=== PATIENT | male | born 1945 | race Caucasian/White ===

== ENCOUNTER 2018-06-12 06:10 | Day surgery (SDC) | payer MEDICARE, BC ==
[2018-06-05 11:10] VITALS: BMI 28.3
[2018-06-12] MEDS ORDERED: SODIUM CHLORIDE 0.9% 1,000 ML IV SCH ×2 (06:14→08:00)
[2018-06-12 06:34] VITALS: RESP 16; TEMP 97
[2018-06-12] MEDS ORDERED: SODIUM CHLORIDE 0.9% 1,000 ML IV ONE ×2 (06:34→08:15)
[2018-06-12] MEDS ORDERED: SODIUM CHLORIDE 0.9% 500 ML 500 ML IV ONE (07:15)
[2018-06-12] MEDS ORDERED: PHENYLEPHRINE-0.9% NACL SYG 1 MG/10 ML SYRINGE ONE ×2 (07:27→07:36)
[2018-06-12] MEDS ORDERED: PROPOFOL 10 MG/ML 20 ML VIAL IV ONE ×2 (07:27→07:36)
[2018-06-12] MEDS ORDERED: ePHEDrine SULFATE/0.9% NACL/PF 50 MG/5 ML SYRINGE IV ONE ×2 (07:27→07:36)
[2018-06-12] MEDS ORDERED: GLYCOPYRROLATE 0.2 MG/ML 2 ML VIAL ONE (07:27)
[2018-06-12] MEDS ORDERED: LIDOCAINE 1% INJ 10MG/ML (20 ML MDV) ONE (07:36)
[2018-06-12] MEDS ORDERED: MIDAZOLAM 2 MG/2 ML VIAL ONE (07:36)
[2018-06-12] MEDS ORDERED: fentaNYL (PF) 50 MCG/ML 2 ML AMP ONE (07:36)
[2018-06-12] MEDS ORDERED: SUCCINYLCHOLINE CHLORIDE VIAL 200 MG/10 ML VIAL IV ONE (07:36)
[2018-06-12 07:45] LABS: Calcium 9.3 mg/dL (8.4-10.2)
[2018-06-12 07:50] LABS: Potassium 5.4 mmol/L (3.5-5.1)
[2018-06-12] MEDS ORDERED: NITROGLYCERIN SL TABS 0.4 MG TAB SUBLINGUAL PRN (07:52)
[2018-06-12] MEDS ORDERED: HYDROcodone/APAP 10-325MG 1 EACH TAB PO PRN (07:52)
--- NOTE | 2018-06-12 08:14 | ECHOT ---
TRANSESOPHAGEAL ECHOCARDIOGRAM INDICATION: Evaluation of left atrial appendage. PROCEDURE: After explaining the procedure to the patient, its risks and the complications, his blood pressure, heart rate, O2 saturation was monitored. The throat was sprayed with Cetacaine. He received sedation per anesthesia department. The probe was introduced in the esophagus without difficulty. Images were obtained. Following that, the probe was removed. FINDINGS: Left atrial size is dilated. Spontaneous contrast was noted. Left atrial appendage is normal. Left ventricular size is normal. The anterior and anteroseptal wall are hypokinetic. Estimated ejection fraction of 40%. The aortic valve revealed fibrocalcific change of aortic cusp with reduced opening. Mitral valve revealed mitral annulus calcification. Tricuspid valve is normal. Descending thoracic aorta appears to be normal. Contrast bubble study revealed no shunting across the interatrial septum. There was no pericardial effusion. Doppler, pulse wave and color Doppler obtained revealed mild mitral and aortic and tricuspid regurgitation. There was no shunting by color Doppler study. The peak gradient across the aortic valve was 20 mmHg with a mean of 10 mmHg. CONCLUSION: 1. Dilated left atrium with normal appearance left atrial appendage with spontaneous contrast. 2. Normal left ventricular size with moderately impaired left ventricular systolic function with segmental wall motion abnormality. 3. Tricuspid aortic valve with mild to moderate aortic stenosis and mild aortic regurgitation. 4. Mild mitral regurgitation with mitral annulus calcification. 5. Mild tricuspid regurgitation. 6. No evidence of shunting across the interatrial septum. MMODL / IJN: [id number] / MTDD
--- NOTE | 2018-06-12 08:17 | CE ---
CARDIAC ELECTROPHYSIOLOGY REPORT CARDIOVERSION PROCEDURE NOTE: INDICATION: Atrial fibrillation. PROCEDURE: After explaining the procedure to the patient, its risks and complications, blood pressure. Heart rate, O2 saturation were monitored. After obtaining sedated state and performing transesophageal echocardiogram, a synchronized biphasic cardioversion using 200 joules was performed with [facility] of normal sinus rhythm. The patient has a long rewarming pause following cardioversion. SAE / JADONN: [id number] /
[2018-06-12] MEDS ORDERED: TICAGRELOR 90 MG TAB PO SCH (09:00)
[2018-06-12] MEDS ORDERED: TAMSULOSIN 0.4 MG CAP.ER.24H PO SCH (09:00)
[2018-06-12] MEDS ORDERED: ATENOLOL 25 MG TAB PO SCH (09:00)
[2018-06-12] MEDS ORDERED: APIXABAN 5 MG TAB PO SCH (09:00)
[2018-06-12 11:09] VITALS: PULSE 56
[2018-06-12 11:11] VITALS: BP 92/53
[2018-06-12] MEDS ORDERED: NON-FORMULARY DRUG (Aspirin [Adult Low Dose Aspirin Ec] 81 MG) PO SCH (21:00)
[2018-06-12] MEDS ORDERED: NON-FORMULARY DRUG (Rosuvastatin 10 MG) PO SCH (21:00)
== END 2018-06-12 11:06 | disposition home or self-care (01) ==
LOC: CATHCVL 06:10
PROVIDERS: ATTEND Internal Medicine Interventional Cardiology
DX: I48.1 Persistent atrial fibrillation (principal); I08.3 Combined rheumatic disorders of mitral, aortic and tricuspid valves; I25.10 Atherosclerotic heart disease of native coronary artery without angina pectoris; I10 Essential (primary) hypertension; Z95.5 Presence of coronary angioplasty implant and graft; E78.2 Mixed hyperlipidemia; Z79.02 Long term (current) use of antithrombotics/antiplatelets; Z79.82 Long term (current) use of aspirin; Z79.899 Other long term (current) drug therapy; Z88.6 Allergy status to analgesic agent; Z91.09 Other allergy status, other than to drugs and biological substances
CPT/HCPCS: 93312; 93320; 93325; 92960; 80048; J2250; J0330; J2001; J3010; J2370; J2704

== ENCOUNTER 2018-06-28 12:46 | Inpatient (IN) | payer MEDICARE, BC ==
[2018-06-28] MEDS ORDERED: ASPIRIN 81 MG PO STA (13:01)
[2018-06-28] MEDS ORDERED: HYDROcodone/APAP 10-325MG 1 EACH TAB PO ONE (13:46)
[2018-06-28 13:54] LABS: Basophils # (A) 0.1 k/uL (0-0.2); Basophils % (A) 1 %; Eosinophils # (A) 0.4 k/uL (0-0.7); Eosinophils % (A) 3 %; HCT 41.4 % (39.0-53.0); HGB 12.9 gm/dL (13.0-17.5); Hypochromasia Slight; Lymphocytes % (A) 9 %; MCH 30.7 pg (25.0-35.0); MCHC 31.2 g/dL (31.0-37.0); MCV 98.3 fL (80.0-100.0); Mean Platelet Volume 6.8; Monocytes # (A) 0.7 k/uL (0-1.0); Monocytes % (A) 7 %; Neutrophils # (A) 8.5 k/uL (1.3-7.7); Neutrophils % (A) 78 %; Platelet Count 421 k/uL (150-450); RBC 4.21 m/uL (4.30-5.90); RDW 14.4 % (11.5-15.5); WBC 10.8 k/uL (3.8-10.6)
--- NOTE | 2018-06-28 14:01 | XR ---
EXAMINATION TYPE: XR chest 2V DATE OF EXAM: 06/28/2018 COMPARISON: NONE HISTORY: Shortness of breath TECHNIQUE: Frontal and lateral views of the chest are obtained. FINDINGS: Scattered senescent parenchymal changes noted. Hyperinflation compatible with COPD. No evidence for infiltrate. No evidence for atelectasis. Heart size is stable. Mediastinal structures are stable and grossly unremarkable. No evidence for hilar prominence. Degenerative changes dorsal spine. IMPRESSION: 1. No evidence for acute pulmonary disease.
[2018-06-28 14:07] LABS: Albumin 4.3 g/dL (3.5-5.0); Calcium 9.9 mg/dL (8.4-10.2); Magnesium 2.2 mg/dL (1.6-2.3); Total Bilirubin 1.5 mg/dL (0.2-1.3); Total Protein 7.6 g/dL (6.3-8.2)
[2018-06-28] MEDS ORDERED: SODIUM CHLORIDE 0.9% 1,000 ML IV STA (14:08)
[2018-06-28] MEDS ORDERED: DILTIAZEM 50 MG in SODIUM CHLORIDE 0.9% 40 ML IV SCH (14:15)
[2018-06-28 14:22] LABS: INR 1.4 (<1.2); Partial Thromboplastin Time 27.8 sec (22.0-30.0); Prothrombin Time 13.3 sec (9.0-12.0)
[2018-06-28] MEDS ORDERED: ESMOLOL IN SODIUM CHLORIDE PMX 2.5 GM in SALINE 1 250ML.BAG IV ONE (15:45)
--- NOTE | 2018-06-28 15:52 | ED ---
Arrhythmia/Palpitations HPI - General Chief Complaint: Arrhythmia/Palpitations Stated Complaint: AFIB Time Seen by Provider: 06/28/18 12:58 Source: patient Mode of arrival: ambulatory Limitations: no limitations - History of Present Illness Initial Comments: Patient presents to the emergency department with palpitations. He was at his doctor's office today. They found him to be an atrial fibrillation with rapid ventricular response. He has a history of atrial fibrillation in the past. He takes liquids. He denies any chest pain or pressure. He has no lightheadedness or dizziness or diaphoresis. He has no focal weakness. He has no nausea or vomiting - Related Data Home Medications Medication Instructions Recorded Confirmed Atenolol [Tenormin] 25 mg PO TID 03/02/16 06/28/18 Tamsulosin [Flomax] 0.4 mg PO QAM 03/02/16 06/28/18 Apixaban [Eliquis] 5 mg PO BID 06/05/18 06/28/18 Nitroglycerin Sl Tabs [Nitrostat] 0.4 mg SUBLINGUAL Q5M PRN 06/05/18 06/28/18 Rosuvastatin [Crestor] 10 mg PO HS 06/05/18 06/28/18 Ticagrelor [Brilinta] 90 mg PO BID 06/05/18 06/28/18 Ciprofloxacin HCl [Cipro] 500 mg PO BID 06/28/18 06/28/18 Lisinopril [Prinivil] 5 mg PO DAILY 06/28/18 06/28/18 Allergies Allergy/AdvReac Type Severity Reaction Status Date / Time No Known Allergies Allergy Verified 06/28/18 14:30 Review of Systems ROS Statement: Those systems with pertinent positive or pertinent negative responses have been documented in the HPI. ROS Other: All systems not noted in ROS Statement are negative. Past Medical History Past Medical History: Atrial Fibrillation, Asthma, Hyperlipidemia, Hypertension , Osteoarthritis (OA), Prostate Disorder Additional Past Medical History / Comment(s): BLOOD IN STOOL past, blood in urine History of Any Multi-Drug Resistant Organisms: None Reported Past Surgical History: No Surgical Hx Reported, Heart Catheterization With Stent Additional Past Surgical History / Comment(s): 05/13 4 stents placed in [place] Past Anesthesia/Blood Transfusion Reactions: No Reported Reaction Date of Last Stent Placement:: 05/13 Past Psychological History: No Psychological Hx Reported Smoking Status: Former smoker Past Alcohol Use History: None Reported Past Drug Use History: None Reported - Past Family History Mother Family Medical History: Cancer Additional Family Medical History / Comment(s): COLON General Exam Limitations: no limitations General appearance: alert, in no apparent distress Head exam: Present: atraumatic, normocephalic, normal inspection Eye exam: Present: normal appearance, PERRL, EOMI. Absent: scleral icterus, conjunctival injection, periorbital swelling ENT exam: Present: normal exam, mucous membranes moist Neck exam: Present: normal inspection. Absent: tenderness, meningismus, lymphadenopathy Respiratory exam: Present: normal lung sounds bilaterally. Absent: respiratory distress, wheezes, rales, rhonchi, stridor Cardiovascular Exam: Present: tachycardia, irregular rhythm. Absent: systolic murmur, diastolic murmur, rubs, gallop, clicks GI/Abdominal exam: Present: soft, normal bowel sounds. Absent: distended, tenderness, guarding, rebound, rigid Extremities exam: Present: normal inspection, full ROM, normal capillary refill. Absent: tenderness, pedal edema, joint swelling, calf tenderness Back exam: Present: normal inspection Neurological exam: Present: alert, oriented X3, CN II-XII intact Psychiatric exam: Present: normal affect, normal mood Skin exam: Present: warm, dry, intact, normal color. Absent: rash Course Vital Signs 06/28/18 06/28/18 06/28/18 12:48 13:29 14:10 Temperature 96.8 F L Pulse Rate 80 151 H Pulse Rate [ 151 H Supine Community Health Worker] Respiratory 20 Rate Blood Pressure 88/66 91/79 O2 Sat by Pulse 96 98 Oximetry 06/28/18 06/28/18 06/28/18 14:22 14:35 14:54 Temperature Pulse Rate 149 H 147 H 150 H Pulse Rate [ Supine Community Health Worker] Respiratory 18 18 Rate Blood Pressure 93/77 102/70 96/80 O2 Sat by Pulse 100 100 Oximetry 06/28/18 06/28/18 06/28/18 15:00 15:37 15:43 Temperature Pulse Rate 147 H 77 75 Pulse Rate [ Supine Community Health Worker] Respiratory 16 18 16 Rate Blood Pressure 92/73 99/79 97/76 O2 Sat by Pulse 98 100 98 Oximetry EKG Findings - EKG Comments: EKG Findings:: Twelve-lead EKG interpreted by me showing ventricular rate 149 bpm, there are no P waves present, the QRS, axis are normal, there is no ST elevation or depression, this is interpreted by me as atrial fibrillation with rapid ventricular response. Medical Decision Making - Medical Decision Making Patient presents with atrial fibrillation with rapid ventricular response. I ordered an IV Cardizem drip. I controlled his heart rate. Patient will be admitted to the hospital. - Lab Data Result diagrams: 06/28/18 13:17 06/28/18 13:17 Lab Results 06/28/18 06/28/18 06/28/18 Range/Units 13:17 13:17 13:17 WBC 10.8 H (3.8-10.6) k/uL RBC 4.21 L (4.30-5.90) m/uL Hgb 12.9 L (13.0-17.5) gm/dL Hct 41.4 (39.0-53.0) % MCV 98.3 (80.0-100.0) fL MCH 30.7 (25.0-35.0) pg MCHC 31.2 (31.0-37.0) g/dL RDW 14.4 (11.5-15.5) % Plt Count 421 (150-450) k/uL Neutrophils % 78 % Lymphocytes % 9 % Monocytes % 7 % Eosinophils % 3 % Basophils % 1 % Neutrophils # 8.5 H (1.3-7.7) k/uL Lymphocytes # 1.0 (1.0-4.8) k/uL Monocytes # 0.7 (0-1.0) k/uL Eosinophils # 0.4 (0-0.7) k/uL Basophils # 0.1 (0-0.2) k/uL Hypochromasia Slight PT 13.3 H (9.0-12.0) sec INR 1.4 H (<1.2) APTT 27.8 (22.0-30.0) sec Sodium 134 L (137-145) mmol/L Potassium 5.0 (3.5-5.1) mmol/L Chloride 103 (98-107) mmol/L Carbon Dioxide 16 L (22-30) mmol/L Anion Gap 15 mmol/L BUN 35 H (9-20) mg/dL Creatinine 1.56 H (0.66-1.25) mg/dL Est GFR (CKD-EPI)AfAm 51 (>60 ml/min/1.73 sqM) Est GFR (CKD-EPI)NonAf 44 (>60 ml/min/1.73 sqM) Glucose 107 H (74-99) mg/dL Calcium 9.9 (8.4-10.2) mg/dL Magnesium 2.2 (1.6-2.3) mg/dL Total Bilirubin 1.5 H (0.2-1.3) mg/dL AST 21 (17-59) U/L ALT 27 (21-72) U/L Alkaline Phosphatase 67 (38-126) U/L Troponin I (0.000-0.034) ng/mL Total Protein 7.6 (6.3-8.2) g/dL Albumin 4.3 (3.5-5.0) g/dL 06/28/18 Range/Units 13:17 WBC (3.8-10.6) k/uL RBC (4.30-5.90) m/uL Hgb (13.0-17.5) gm/dL Hct (39.0-53.0) % MCV (80.0-100.0) fL MCH (25.0-35.0) pg MCHC (31.0-37.0) g/dL RDW (11.5-15.5) % Plt Count (150-450) k/uL Neutrophils % % Lymphocytes % % Monocytes % % Eosinophils % % Basophils % % Neutrophils # (1.3-7.7) k/uL Lymphocytes # (1.0-4.8) k/uL Monocytes # (0-1.0) k/uL Eosinophils # (0-0.7) k/uL Basophils # (0-0.2) k/uL Hypochromasia PT (9.0-12.0) sec INR (<1.2) APTT (22.0-30.0) sec Sodium (137-145) mmol/L Potassium (3.5-5.1) mmol/L Chloride (98-107) mmol/L Carbon Dioxide (22-30) mmol/L Anion Gap mmol/L BUN (9-20) mg/dL Creatinine (0.66-1.25) mg/dL Est GFR (CKD-EPI)AfAm (>60 ml/min/1.73 sqM) Est GFR (CKD-EPI)NonAf (>60 ml/min/1.73 sqM) Glucose (74-99) mg/dL Calcium (8.4-10.2) mg/dL Magnesium (1.6-2.3) mg/dL Total Bilirubin (0.2-1.3) mg/dL AST (17-59) U/L ALT (21-72) U/L Alkaline Phosphatase (38-126) U/L Troponin I 0.049 H* (0.000-0.034) ng/mL Total Protein (6.3-8.2) g/dL Albumin (3.5-5.0) g/dL Critical Care Time Critical Care Time: Yes Total Critical Care Time: 35 Disposition Clinical Impression: Atrial fibrillation Disposition: ADMITTED IP TO THIS [facility] Condition: Serious Is patient prescribed a controlled substance at d/c from ED?: No Referrals: Alecia Rai MD [Primary Care Provider] - 1-2 days Decision to Admit Reason: Admit from EC Decision Time: 15:52
[2018-06-28] MEDS ORDERED: NALOXONE 0.4 MG/ML 1 ML VIAL IV PRN (15:55)
[2018-06-28] MEDS ORDERED: METOPROLOL TARTRATE 50 MG TAB PO SCH (16:53)
--- NOTE | 2018-06-28 17:02 | P.HPIM ---
History of Present Illness 72-year-old pleasant gentleman came in as he was sent in from Dr. Reed, compliance reviewer office after he is found to be in atrial fibrillation he went there for stress test patient is found to be in A. fib with rapid ventricular rate. Patient is also being treated for urinary tract infection, was evaluated by urology patient had a dysuria hematuria and patient was started on Cipro recently which will be continued patient has Proteus mirabilis in the urine cultures which is sensitive to fluoroquinolones. Patient presently denied any fever chills doesn't have any leukocytosis patient's creatinine is 1.56 patient in the past had a cardioversion with the CANDIDA at that time he has moderately depressed LV function although patient is not in heart failure exacerbation. His baseline creatinine is around 1.6. Patient is on lisinopril which is being continued because of the heart failure and creatinine being at baseline although his serum sodium is 134, for now will just monitor basic metabolic profile repeated tomorrow morning. Patient is presently on Cardizem which will be discontinued patient is given a dose of metoprolol 50 and will continue with 50 twice a day and cardiology was consulted patient has mildly elevated troponin probably secondary to atrial fibrillation we'll repeat 2 more sets of troponins on him. Patient the was having some shortness of breath denied any diaphoresis denied orthopnea proximal nocturnal dyspnea, I do not have any BNP available BNP, TSH will be obtained. Review of Systems REVIEW OF SYSTEMS: CONSTITUTIONAL: No fever, no malaise, no fatigue. HEENT: No recent visual problems or hearing problems. Denied any sore throat. CARDIOVASCULAR: No chest pain, orthopnea, PND, no palpitations, no syncope. PULMONARY: no cough, no hemoptysis. GASTROINTESTINAL: No diarrhea, no nausea, no vomiting, no abdominal pain. Normoactive bowel sounds. NEUROLOGICAL: No headaches, no weakness, no numbness. HEMATOLOGICAL: Denies any bleeding or petechiae. GENITOURINARY: Denies any burning micturition, frequency, or urgency. MUSCULOSKELETAL/RHEUMATOLOGICAL: Denies any joint pain, swelling, or any muscle pain. ENDOCRINE: Denies any polyuria or polydipsia. The rest of the 14-point review of systems is negative. Past Medical History Past Medical History: Atrial Fibrillation, Asthma, Hyperlipidemia, Hypertension , Osteoarthritis (OA), Prostate Disorder Additional Past Medical History / Comment(s): BLOOD IN STOOL past, blood in urine History of Any Multi-Drug Resistant Organisms: None Reported Past Surgical History: No Surgical Hx Reported, Heart Catheterization With Stent Additional Past Surgical History / Comment(s): 05/13 4 stents placed in [place] Past Anesthesia/Blood Transfusion Reactions: No Reported Reaction Date of Last Stent Placement:: 05/13 Past Psychological History: No Psychological Hx Reported Smoking Status: Former smoker Past Alcohol Use History: None Reported Past Drug Use History: None Reported - Past Family History Mother Family Medical History: Cancer Additional Family Medical History / Comment(s): COLON Medications and Allergies Home Medications Medication Instructions Recorded Confirmed Type Atenolol [Tenormin] 25 mg PO TID 03/02/16 06/28/18 History Tamsulosin [Flomax] 0.4 mg PO QAM 03/02/16 06/28/18 History Apixaban [Eliquis] 5 mg PO BID 06/05/18 06/28/18 History Nitroglycerin Sl Tabs [Nitrostat] 0.4 mg SUBLINGUAL Q5M PRN 06/05/18 06/28/18 History Rosuvastatin [Crestor] 10 mg PO HS 06/05/18 06/28/18 History Ticagrelor [Brilinta] 90 mg PO BID 06/05/18 06/28/18 History Ciprofloxacin HCl [Cipro] 500 mg PO BID 06/28/18 06/28/18 History Lisinopril [Prinivil] 5 mg PO DAILY 06/28/18 06/28/18 History Allergies Allergy/AdvReac Type Severity Reaction Status Date / Time No Known Allergies Allergy Verified 06/28/18 14:30 Physical Exam Vitals: Vital Signs Temp Pulse Pulse Resp BP Pulse Ox 06/28/18 16:00 80 16 108/77 100 06/28/18 15:43 75 16 97/76 98 06/28/18 15:37 77 18 99/79 100 06/28/18 15:00 147 H 16 92/73 98 06/28/18 14:54 150 H 18 96/80 100 06/28/18 14:35 147 H 102/70 06/28/18 14:22 149 H 18 93/77 100 06/28/18 14:10 151 H 91/79 98 06/28/18 13:29 151 H 06/28/18 12:48 96.8 F L 80 20 88/66 96 Intake and Output 06/28/18 06/28/18 06/28/18 06:59 14:59 22:59 Intake Total 5 Balance 5 Intake: Intake, IV Titration 5 Amount Diltiazem 50 mg In Sodium 5 Chloride 0.9% 40 ml @ 10 MG/HR 10 mls/hr IV .Q5H [facility] Rx#:[id number] Other: Weight 94.347 kg PHYSICAL EXAMINATION: GENERAL: The patient is alert and oriented x3, not in any acute distress. Well developed, well nourished. HEENT: Pupils are round and equally reacting to light. EOMI. No scleral icterus. No conjunctival pallor. Normocephalic, atraumatic. No pharyngeal erythema. No thyromegaly. CARDIOVASCULAR: S1 and S2 present. No murmurs, rubs, or gallops. Patient has irregularly irregular heart rate PULMONARY: Chest is clear to auscultation, no wheezing or crackles. ABDOMEN: Soft, nontender, nondistended, normoactive bowel sounds. No palpable organomegaly. MUSCULOSKELETAL: No joint swelling or deformity. EXTREMITIES: No cyanosis, clubbing, or pedal edema. NEUROLOGICAL: Gross neurological examination did not reveal any focal deficits. SKIN: No rashes. Results CBC & Chem 7: 06/28/18 13:17 06/28/18 13:17 Labs: Abnormal Lab Results - Last 24 Hours (Table) 06/28/18 06/28/18 06/28/18 Range/Units 13:17 13:17 13:17 WBC 10.8 H (3.8-10.6) k/uL RBC 4.21 L (4.30-5.90) m/uL Hgb 12.9 L (13.0-17.5) gm/dL Neutrophils # 8.5 H (1.3-7.7) k/uL PT 13.3 H (9.0-12.0) sec INR 1.4 H (<1.2) Sodium 134 L (137-145) mmol/L Carbon Dioxide 16 L (22-30) mmol/L BUN 35 H (9-20) mg/dL Creatinine 1.56 H (0.66-1.25) mg/dL Glucose 107 H (74-99) mg/dL Total Bilirubin 1.5 H (0.2-1.3) mg/dL Troponin I (0.000-0.034) ng/mL 06/28/18 Range/Units 13:17 WBC (3.8-10.6) k/uL RBC (4.30-5.90) m/uL Hgb (13.0-17.5) gm/dL Neutrophils # (1.3-7.7) k/uL PT (9.0-12.0) sec INR (<1.2) Sodium (137-145) mmol/L Carbon Dioxide (22-30) mmol/L BUN (9-20) mg/dL Creatinine (0.66-1.25) mg/dL Glucose (74-99) mg/dL Total Bilirubin (0.2-1.3) mg/dL Troponin I 0.049 H* (0.000-0.034) ng/mL Assessment and Plan Plan: -Atrial fibrillation with rapid and regular rate patient is already on anticoagulation with Eliquis she'll be continued. Patient's shortness of breath is secondary to his A. fib most probably. Patient was on Cardizem because of poor LV function from his CANDIDA I Cardizem was discontinued patient will be given metoprolol 50 mg twice a day starting now. -Congestive heart failure chronic systolic dysfunction patient is either euvolemic or hypovolemic patient is not in volume overload patient will be resumed on JOHNNIE inhibitor lab start him on any diuretic therapy at this time. -Hyponatremia: Possibly hypervolemic hyponatremia considering his heart failure history patient will not be started on a IV fluids will repeat basic metabolic profile tomorrow -Urinary tract infection: Patient has Proteus mirabilis in the urine in the past patient will be started on Cipro patient is already on Cipro at home. -Benign prostatic hypertrophy for which patient is on Flomax which will be continued -Coronary artery disease with previous stents in the past for which patient is on [place] time which will be continued -Hyperlipidemia
[2018-06-28] MEDS: ATORVASTATIN 20 MG TAB PO SCH (19:54)
[2018-06-28] MEDS: TICAGRELOR 90 MG TAB PO SCH (19:54)
[2018-06-28] MEDS: APIXABAN 5 MG TAB PO SCH (19:54)
[2018-06-28] MEDS: CIPROFLOXACIN HCL 500 MG TAB PO SCH (19:54)
[2018-06-28] MEDS: METOPROLOL TARTRATE 50 MG TAB PO SCH (19:54)
[2018-06-28] MEDS: DILTIAZEM 50 MG in SODIUM CHLORIDE 0.9% 40 ML IV SCH ×2 (21:02→23:11)
[2018-06-28] MEDS ORDERED: ATENOLOL 25 MG TAB PO SCH (22:00)
[2018-06-28] MEDS: HYDROcodone/APAP 10-325MG 1 EACH TAB PO PRN (23:08)
[2018-06-29] MEDS: DILTIAZEM 50 MG in SODIUM CHLORIDE 0.9% 40 ML IV SCH ×2 (04:15→09:25)
--- NOTE | 2018-06-29 09:14 | P.DS ---
Providers Date of admission: 06/28/18 14:43 Attending physician: Zion Fan Consults: 06/29/18 08:38 Consult Physician Routine Consulting Provider: Chris Reed Consult Reason/Comments: A.fib Do you want consulting provider notified?: Yes Primary care physician: [facility] Course: 72-year-old pleasant gentleman with known history of atrial fibrillation came in with A. fib with rapid and rate. Patient had significant improvement since last night patient the is off Cardizem. Patient has moderately depressed LV function because of which I started him on metoprolol 50 twice a day with which his heart rate is well controlled but still in atrial fibrillation is on anticoagulation. If cleared by cardiology patient will be discharged to follow with Dr. Reed as an outpatient. Patient is feeling well not in heart failure exacerbation at this time. Patient does have elevated BNP which is probably chronic elevation. Chest x-ray did not show any pulmonary edema. PHYSICAL EXAMINATION: GENERAL: The patient is alert and oriented x3, not in any acute distress. Well developed, well nourished. HEENT: Pupils are round and equally reacting to light. EOMI. No scleral icterus. No conjunctival pallor. Normocephalic, atraumatic. No pharyngeal erythema. No thyromegaly. CARDIOVASCULAR: S1 and S2 present. No murmurs, rubs, or gallops. PULMONARY: Chest is clear to auscultation, no wheezing or crackles. ABDOMEN: Soft, nontender, nondistended, normoactive bowel sounds. No palpable organomegaly. MUSCULOSKELETAL: No joint swelling or deformity. EXTREMITIES: No cyanosis, clubbing, or pedal edema. NEUROLOGICAL: Gross neurological examination did not reveal any focal deficits. SKIN: No rashes. Assessment and Plan Plan: -Atrial fibrillation with rapid and regular rate patient is already on anticoagulation with Eliquis patient heart rate is controlled still in atrial flutter. Patient is on metoprolol 50 twice a day -Congestive heart failure chronic systolic dysfunction patient is either euvolemic or hypovolemic patient is not in volume overload patient will be resumed on JOHNNIE inhibitor lab start him on any diuretic therapy at this time. -Hyponatremia: Possibly hypervolemic hyponatremia considering his heart failure history patient was not be started on a IV fluids will repeat basic metabolic profile pending from today. -Urinary tract infection: Patient has Proteus mirabilis in the urine in the past patient will be started on Cipro patient is already on Cipro at home. Which can be continued symptoms are improving -Benign prostatic hypertrophy for which patient is on Flomax which will be continued -Coronary artery disease with previous stents in the past for which patient is on Brilinta which will be continued -Hyperlipidemia Patient Condition at Discharge: Serious Plan - Discharge Summary Discharge Rx Participant: No New Discharge Prescriptions: No Action Tamsulosin [Flomax] 0.4 mg PO QAM Atenolol [Tenormin] 25 mg PO TID Ticagrelor [Brilinta] 90 mg PO BID Nitroglycerin Sl Tabs [Nitrostat] 0.4 mg SUBLINGUAL Q5M PRN PRN Reason: Angina Rosuvastatin [Crestor] 10 mg PO HS Apixaban [Eliquis] 5 mg PO BID Ciprofloxacin HCl [Cipro] 500 mg PO BID Lisinopril [Prinivil] 5 mg PO DAILY HYDROcodone/APAP 10-325MG [[place] 10-325] 1 tablet PO Q8HR PRN PRN Reason: Pain Discharge Medication List Atenolol [Tenormin] 25 mg PO TID 03/02/16 [History] Tamsulosin [Flomax] 0.4 mg PO QAM 03/02/16 [History] Apixaban [Eliquis] 5 mg PO BID 06/05/18 [History] Nitroglycerin Sl Tabs [Nitrostat] 0.4 mg SUBLINGUAL Q5M PRN 06/05/18 [History] Rosuvastatin [Crestor] 10 mg PO HS 06/05/18 [History] Ticagrelor [Brilinta] 90 mg PO BID 06/05/18 [History] Ciprofloxacin HCl [Cipro] 500 mg PO BID 06/28/18 [History] HYDROcodone/APAP 10-325MG [[place] 10-325] 1 tablet PO Q8HR PRN 06/28/18 [History] Lisinopril [Prinivil] 5 mg PO DAILY 06/28/18 [History] Follow up Appointment(s)/Referral(s): Alecia Rai MD [Primary Care Provider] - 1-2 days
[2018-06-29] MEDS: CIPROFLOXACIN HCL 500 MG TAB PO SCH ×2 (09:26→20:11)
[2018-06-29] MEDS: APIXABAN 5 MG TAB PO SCH (09:26)
[2018-06-29] MEDS: METOPROLOL TARTRATE 50 MG TAB PO SCH ×2 (09:26→20:11)
[2018-06-29] MEDS: TICAGRELOR 90 MG TAB PO SCH (09:26)
[2018-06-29] MEDS: TAMSULOSIN 0.4 MG CAP.ER.24H PO SCH (09:26)
[2018-06-29] MEDS: HYDROcodone/APAP 10-325MG 1 EACH TAB PO PRN ×2 (09:32→20:11)
[2018-06-29 10:45] LABS: Calcium 9.5 mg/dL (8.4-10.2); Potassium 5.2 mmol/L (3.5-5.1)
[2018-06-29] MEDS ORDERED: DEXTROSE 5% IN WATER 100 ML with AMIODARONE 150 MG IV ONE (12:00)
[2018-06-29] MEDS: AMIODARONE 450 MG in DEXTROSE 5% IN WATER 250 ML IV SCH ×4 (12:26→20:12)
--- NOTE | 2018-06-29 12:58 | P.CRDCN ---
History of Present Illness Consult date: 06/29/18 Requesting physician: Vincent Mayen Reason for Consult (text): AF w/RVR Chief complaint: sent from office due to rapid heart beat and hypotension History of present illness: Supplies an 72-year-old gentleman with atrial fibrillation with rapid ventricular response. Has a history of CAD with recent cardiac catheterization and stenting done in [place] where he received 2 stents to LAD, one stent to left circumflex and one stent to the RCA. Ejection fraction at that time was reported to be 35-39%. No clear evidence of SD at that time. Also history of hypertension and hyperlipidemia. He was discharged home in [place] with aspirin , Eliquis and Brilinta. He recently underwent JENNIE and cardioversion at which time he had a long pause following the cardioversion. He was subsequently placed on an event monitor. He was seen in our office for a low-level stress test at which time he was found to be tachycardic and hypotensive. Was sent to the emergency department and found to be in atrial flutter with rapid ventricular response. He was placed on a Cardizem drip. Patient apparently has also been dealing with UTI and some hematuria. Laboratory values on admission showed a white count of 10,800, potassium of 5.0, BUN of 35 and creatinine of 1.56. Labs this morning show potassium 5.2, BUN of 28 and creatinine of 1.31. Troponins came back to mildly elevated at 0.049, 0.064 and 0.060. TSH is normal. Anti-proBNP is elevated at 2760. Patient has been complaining of some dyspnea on exertion. Has been noticing shortness of breath while walking through a store. On examination, patient is resting comfortably in bed. At rest heart rate is controlled. He continues to be a typical atrial flutter. Heart rate with activity is up in the 140s. Blood pressure remains borderline. He continues to be on Cardizem drip at 10 and metoprolol titrate 50 mg by mouth twice a day. Past Medical History Past Medical History: Atrial Fibrillation, Hyperlipidemia, Hypertension, Osteoarthritis (OA), Pneumonia, Prostate Disorder Additional Past Medical History / Comment(s): "blood in urine d/t uti", asthma previouslt charted-pt stated never told he had asthma, hx lt wrist fx -casted only, chronic back pain"spurs",currently wearing a heart monitiiro for 30 days. History of Any Multi-Drug Resistant Organisms: None Reported Past Surgical History: Heart Catheterization With Stent Additional Past Surgical History / Comment(s): 05/13 4 stents placed in [place], ep study jennie cardioversion.colonoscopy Past Anesthesia/Blood Transfusion Reactions: No Reported Reaction Date of Last Stent Placement:: 05/13 Smoking Status: Former smoker - Past Family History Mother Family Medical History: Cancer, Chest Pain / Angina, Hypertension, Thyroid Disorder Additional Family Medical History / Comment(s): COLON Father Family Medical History: Diabetes Mellitus, Hypertension Additional Family Medical History / Comment(s): ,pacemaker,brain anuerysm Medications and Allergies Home Medications Medication Instructions Recorded Confirmed Type Tamsulosin [Flomax] 0.4 mg PO QAM 03/02/16 06/28/18 History Apixaban [Eliquis] 5 mg PO BID 06/05/18 06/28/18 History Nitroglycerin Sl Tabs [Nitrostat] 0.4 mg SUBLINGUAL Q5M PRN 06/05/18 06/28/18 History Rosuvastatin [Crestor] 10 mg PO HS 06/05/18 06/28/18 History Ticagrelor [Brilinta] 90 mg PO BID 06/05/18 06/28/18 History Ciprofloxacin HCl [Cipro] 500 mg PO BID 06/28/18 06/28/18 History HYDROcodone/APAP 10-325MG [[place] 1 tablet PO Q8HR PRN 06/28/18 06/28/18 History 10-325] Lisinopril [Prinivil] 5 mg PO DAILY 06/28/18 06/28/18 History Metoprolol Tartrate [Lopressor] 50 mg PO BID #60 tab 06/29/18 Rx Allergies Allergy/AdvReac Type Severity Reaction Status Date / Time No Known Allergies Allergy Verified 06/28/18 14:30 Physical Exam Vitals: Vital Signs Temp Pulse Pulse Pulse Resp BP BP 06/29/18 12:00 76 77 06/29/18 11:52 97.4 F L 77 18 114/77 06/29/18 08:00 97.8 F 76 74 18 103/66 06/29/18 03:27 98.5 F 76 76 17 98/69 06/29/18 00:10 98.5 F 77 17 97/69 06/28/18 20:10 98.2 F 148 H 17 106/70 06/28/18 18:33 97.6 F 149 H 18 105/66 06/28/18 17:46 80 18 106/72 06/28/18 16:00 80 16 108/77 06/28/18 15:43 75 16 97/76 06/28/18 15:37 77 18 99/79 06/28/18 15:00 147 H 16 92/73 06/28/18 14:54 150 H 18 96/80 06/28/18 14:35 147 H 102/70 06/28/18 14:22 149 H 18 93/77 06/28/18 14:10 151 H 91/79 06/28/18 13:29 151 H 06/28/18 12:48 96.8 F L 80 20 88/66 Pulse Ox 06/29/18 12:00 06/29/18 11:52 99 06/29/18 08:00 98 06/29/18 03:27 98 06/29/18 00:10 100 06/28/18 20:10 100 06/28/18 18:33 94 L 06/28/18 17:46 100 06/28/18 16:00 100 06/28/18 15:43 98 06/28/18 15:37 100 06/28/18 15:00 98 06/28/18 14:54 100 06/28/18 14:35 06/28/18 14:22 100 06/28/18 14:10 98 06/28/18 13:29 06/28/18 12:48 96 Intake and Output 06/28/18 06/29/18 06/29/18 22:59 06:59 14:59 Intake Total 311.5 286 Balance 311.5 286 Intake: Intake, IV Titration 71.5 50 Amount Diltiazem 50 mg In Sodium 71.5 50 Chloride 0.9% 40 ml @ 10 MG/HR 10 mls/hr IV .Q5H [facility] Rx#:[id number] Oral 240 236 Other: Voiding Method Toilet Toilet Toilet # Voids 3 Weight 90.4 kg PHYSICAL EXAMINATION: HEENT: Head is atraumatic, normocephalic. Pupils equal, round. Neck is supple. There is no elevated jugular venous pressure. HEART EXAMINATION: Heart sounds regular, S1 and S2 with a systolic murmur. CHEST EXAMINATION: Lungs are clear to auscultation and precussion. No chest wall tenderness is noted on palpation or with deep breathing. ABDOMEN: Soft, nontender. Bowel sounds are heard. No organomegaly noted. EXTREMITIES: 2+ peripheral pulses with no evidence of peripheral edema and no calf tenderness noted. NEUROLOGIC patient is awake, alert and oriented x3. . Results 06/28/18 13:17 06/29/18 10:10 Cardiac Enzymes 06/28/18 06/28/18 06/28/18 Range/Units 13:17 13: 19:12 AST 21 (17-59) U/L Troponin I 0.049 H* 0.064 H* (0.000-0.034) ng/mL 06/29/18 Range/Units 00:47 AST (17-59) U/L Troponin I 0.060 H* (0.000-0.034) ng/mL Coagulation 06/28/18 Range/Units 13:17 PT 13.3 H (9.0-12.0) sec APTT 27.8 (22.0-30.0) sec CBC 06/28/18 Range/Units 13:17 WBC 10.8 H (3.8-10.6) k/uL RBC 4.21 L (4.30-5.90) m/uL Hgb 12.9 L (13.0-17.5) gm/dL Hct 41.4 (39.0-53.0) % Plt Count 421 (150-450) k/uL Comprehensive Metabolic Panel 06/28/18 06/29/18 Range/Units 13:17 10:10 Sodium 134 L 136 L (137-145) mmol/L Potassium 5.0 5.2 H (3.5-5.1) mmol/L Chloride 103 105 (98-107) mmol/L Carbon Dioxide 16 L 20 L (22-30) mmol/L BUN 35 H 28 H (9-20) mg/dL Creatinine 1.56 H 1.31 H (0.66-1.25) mg/dL Glucose 107 H 98 (74-99) mg/dL Calcium 9.9 9.5 (8.4-10.2) mg/dL AST 21 (17-59) U/L ALT 27 (21-72) U/L Alkaline Phosphatase 67 (38-126) U/L Total Protein 7.6 (6.3-8.2) g/dL Albumin 4.3 (3.5-5.0) g/dL Current Medications Generic Name Dose Route Start Last Admin Trade Name Freq PRN Reason Stop Dose Admin Hydrocodone Bitart/Acetaminophen 1 each 06/28/18 21:33 06/29/18 09:32 [place] 10 PO 1 each Q8HR PRN Administration Pain Atorvastatin Calcium 20 mg 06/28/18 21:00 06/28/18 19:54 Lipitor PO 20 mg HS HERLINDA Administration Ciprofloxacin 500 mg 06/28/18 21:00 06/29/18 09:26 Cipro PO 500 mg BID HERLINDA Administration Clopidogrel Bisulfate 300 mg 06/29/18 18:00 Plavix PO 06/29/18 18:01 ONCE ONE Clopidogrel Bisulfate 75 mg 06/30/18 09:00 Plavix PO DAILY HERLINDA Amiodarone HCl 450 mg/ 259 mls @ 34.53 mls/hr 06/29/18 12:15 06/29/18 12:26 Dextrose/Water IV 06/30/18 12:16 1 mg/min .Q7H31M HERLINDA 34.53 mls/hr Administration Protocol 1 MG/MIN Metoprolol Tartrate 50 mg 06/28/18 21:00 06/29/18 09:26 Lopressor PO 50 mg BID HERLINDA Administration Naloxone HCl 0.2 mg 06/28/18 15:55 Narcan IV Q2M PRN Opioid Reversal Rivaroxaban 15 mg 06/29/18 17:30 Xarelto PO W/SUPPER HERLINDA Tamsulosin HCl 0.4 mg 06/29/18 09:00 06/29/18 09:26 Flomax PO 0.4 mg QAM HERLINDA Administration Intake and Output 06/28/18 06/29/18 06/29/18 22:59 06:59 14:59 Intake Total 311.5 286 Balance 311.5 286 Intake: Intake, IV Titration 71.5 50 Amount Diltiazem 50 mg In Sodium 71.5 50 Chloride 0.9% 40 ml @ 10 MG/HR 10 mls/hr IV .Q5H HERLINDA Rx#:[id number] Oral 240 236 Other: Voiding Method Toilet Toilet Toilet # Voids 3 Weight 90.4 kg 06/28/18 13:17 06/29/18 10:10 Assessment and Plan Assessment: #1 typical atrial flutter with rapid ventricular response, persistent #2 CAD with recent stenting of the left circumflex, LAD and RCA #3 hypertension, currently hypotensive #4 cardiomyopathy, exact etiology unclear, could be partly ischemic as well as tachycardia mediated to my ejection fraction around 35-40% Plan: From cardiology perspective, we will stop Cardizem. We'll start the patient on amiodarone bolus and drip. We will stop Brilinta and Eliquis and switch to Xarelto 15mg daily and Plavix 75mg daily. He will get Plavix 300mg this evening. Continue to monitor the patient and provide further recommendations accordingly. EARLY CHILDHOOD COORDINATOR note has been reviewed, I agree with a documented findings and plan of care. Patient was seen and examined.
[2018-06-29] MEDS: RIVAROXABAN 15 MG TAB PO SCH (16:40)
[2018-06-29] MEDS ORDERED: DIGOXIN 250 MCG/ML 2 ML AMP IVP ONE (17:31)
[2018-06-29] MEDS ORDERED: CLOPIDOGREL 75 MG TAB PO ONE (18:00)
[2018-06-29] MEDS: ATORVASTATIN 20 MG TAB PO SCH (20:10)
[2018-06-30] MEDS: AMIODARONE 450 MG in DEXTROSE 5% IN WATER 250 ML IV SCH ×4 (06:15→10:58)
[2018-06-30] MEDS: TAMSULOSIN 0.4 MG CAP.ER.24H PO SCH (09:04)
[2018-06-30] MEDS: CIPROFLOXACIN HCL 500 MG TAB PO SCH ×2 (09:04→20:01)
[2018-06-30] MEDS: CLOPIDOGREL 75 MG TAB PO SCH (09:04)
[2018-06-30] MEDS: METOPROLOL TARTRATE 50 MG TAB PO SCH ×2 (09:04→20:01)
--- NOTE | 2018-06-30 11:39 | P.PN ---
Subjective 72-year-old pleasant gentleman with known history of atrial fibrillation came in with Dacia peacock with rapid and rate. Patient had significant improvement since last night patient the is off Cardizem. Patient has moderately depressed LV function because of which I started him on metoprolol 50 twice a day with which his heart rate is well controlled but still in atrial fibrillation is on anticoagulation. If cleared by cardiology patient will be discharged to follow with Dr. Reed as an outpatient. Patient is feeling well not in heart failure exacerbation at this time. Patient does have elevated BNP which is probably chronic elevation. Chest x-ray did not show any pulmonary edema. 06/30/2018 Patient clinically doing well but heart rate is in 130s 140s patient was started on amiodarone drip patient will need evaluation by electrophysiology tomorrow. Constitutional: Denied any fatigue denied any fever. Cardio vascular: denied any chest pain, palpitations Gastrointestinal denied any nausea vomiting Pulmonary: Denied any shortness of breath cough Neurologic denied any new focal deficits All inpatient medications were reviewed and appropriate changes in these medications as dictated in the interval history and assessment and plan. Objective - Vital Signs Vital signs: Vital Signs Temp 98.4 F 06/30/18 08:00 Pulse 142 H 06/30/18 08:00 Resp 18 06/30/18 08:00 BP 96/69 06/30/18 08:00 Pulse Ox 98 06/30/18 08:00 Intake & Output 06/29/18 06/30/18 06/30/18 18:59 06:59 18:59 Intake Total 766 672.463 240 Balance 766 672.463 240 Weight 88.4 kg Intake: Intake, IV Titration 50 432.463 Amount Amiodarone 450 mg In 432.463 Dextrose 5% in Water 250 ml @ 1 MG/MIN 34.53 mls/ hr IV .Q7H31M HERLINDA Rx#: [id number] Diltiazem 50 mg In Sodium 50 Chloride 0.9% 40 ml @ 10 MG/HR 10 mls/hr IV .Q5H HERLINDA Rx#:[id number] Oral 716 240 240 Other: Voiding Method Toilet Toilet Toilet # Voids 2 - Exam PHYSICAL EXAMINATION: GENERAL: The patient is alert and oriented x3, not in any acute distress. Well developed, well nourished. HEENT: Pupils are round and equally reacting to light. EOMI. No scleral icterus. No conjunctival pallor. Normocephalic, atraumatic. No pharyngeal erythema. No thyromegaly. CARDIOVASCULAR: S1 and S2 present. No murmurs, rubs, or gallops. Tachycardic irregularly irregular patient is in atrial flutter PULMONARY: Chest is clear to auscultation, no wheezing or crackles. ABDOMEN: Soft, nontender, nondistended, normoactive bowel sounds. No palpable organomegaly. MUSCULOSKELETAL: No joint swelling or deformity. EXTREMITIES: No cyanosis, clubbing, or pedal edema. NEUROLOGICAL: Gross neurological examination did not reveal any focal deficits. SKIN: No rashes. - Labs CBC & Chem 7: 06/28/18 13:17 06/29/18 10:10 Assessment and Plan Plan: -Atrial fibrillation/flutter with rapid ventricular rate patient will be continued on anticoagulation with eliquis, continue amiodarone drip. EP evaluation tomorrow -Congestive heart failure chronic systolic dysfunction patient is either euvolemic or hypovolemic patient is not in volume overload patient will be resumed on JOHNNIE inhibitor lab start him on any diuretic therapy at this time. Patient is bit hyperkalemic we'll repeat potassium tomorrow his EF is 30-35% -Hyponatremia: Possibly hypervolemic hyponatremia improved now -Urinary tract infection: Patient has Proteus mirabilis in the urine in the past patient will be started on Cipro patient is already on Cipro at home. Which can be continued symptoms are improving -Benign prostatic hypertrophy for which patient is on Flomax which will be continued -Coronary artery disease with previous stents in the past for which patient is on Brilinta which will be continued -Hyperlipidemia -Elevated troponin secondary to atrial fibrillation.
[2018-06-30] MEDS: HYDROcodone/APAP 10-325MG 1 EACH TAB PO PRN ×3 (11:43→22:49)
[2018-06-30] MEDS: RIVAROXABAN 15 MG TAB PO SCH (16:00)
[2018-06-30] MEDS: ATORVASTATIN 20 MG TAB PO SCH (20:01)
--- NOTE | 2018-07-01 05:53 | PN ---
PROGRESS NOTE This patient was admitted with atrial flutter and rapid ventricular response. The patient persists to be in rapid ventricular response. He was given IV amiodarone drip over the last 24 hours without any significant improvement. The patient is clinically otherwise feeling well. Denies any orthopnea or PND. He is not in any respiratory distress. Blood pressure is 113/82, heart rate is 130-140 per minute. First and second heart sounds are normal. Lungs are clinically clear to auscultation and percussion. The patient's electrolytes are normal with potassium 5.2 and creatinine is 1.31. The patient's proBNP level was 2750. FINAL IMPRESSION: This patient remains in atrial flutter with recent rapid ventricular response in spite of being on beta edy as well as the amiodarone, we will get EP consultation and consider for possible ablation for the atrial flutter. SAE / RADHA: [id number] /
[2018-07-01 06:10] LABS: Calcium 8.8 mg/dL (8.4-10.2); Potassium 4.7 mmol/L (3.5-5.1)
--- NOTE | 2018-07-01 10:32 | CDI ---
Last Revision, July 2017 Documentation Clarification Form Date: 07/01 From: Mallory Cool RN Admit Date: 06/28/2018 2:43:00 PM Patient Name: Dominick Swartz Visit Number: [id number] ATTENTION: The Clinical Documentation Specialists (CDI) and [facility] Coding Staff appreciate your assistance in clarifying documentation. Please respond to the clarification below the line at the bottom and electronically sign. The CDI & [facility] Coding staff will review the response and follow-up if needed. Please note: Queries are made part of the Legal Health Record. If you have any questions, please contact the author of this message via ITS. Zion Dexter MD, Can you please render your opinion on the following documentation? Patient admitted with arrhythmia/palpitations, a fib was at PCP and found to be in a fib rvr, Cardizem drip ordered. History/Risk Factors: A FIB, asthma, hyperlipidemia, HTN, OA, prostate disorder , stents, ex smoker Clinical Indicators: WBC on admission: 10.8 Lactic acid: not drawn Blood cultures: none Vitals signs on admission: T 96.8, P 80, R 20, 88/66, 96% RA Other Clinical Indicators: Consult 06/29 states Pt. apparently has also been dealing with UTI and some hematuria Treatment: ID Consult: Cardiology Antibiotics: Ciprofloxacin PO IV Bolus: dextrose/water x 1 In your professional opinion, please clarify if these findings signify one of the following conditions, whether the condition is POA, and cause, if known: Sepsis ruled in Sepsis ruled out SIRS, without underlying infectious process Sepsis Severe Sepsis Other, please specify Unable to determine Present on Admission: Yes No Identify the (suspected) organism SIRS Criteria..2 or more of the following may indicate SIRS: Temperature < 96.8F (36C) or > 101.0F (38.3C) Heart Rate > 90 bpm Respiratory Rate > 20 breaths/min or PaCO2 < 32 mmHg White Blood Cell Count > 12,000 or < 4,000 cells/mm3 or > 10% bands Lactate >2.0 mmol/L (>4.0 is equivalent to septic shock) -- No sepsis but patient does have UTI MTDD
[2018-07-01] MEDS: CLOPIDOGREL 75 MG TAB PO SCH (12:06)
[2018-07-01] MEDS: TAMSULOSIN 0.4 MG CAP.ER.24H PO SCH (12:06)
[2018-07-01] MEDS: CIPROFLOXACIN HCL 500 MG TAB PO SCH ×2 (12:07→21:32)
[2018-07-01] MEDS: METOPROLOL TARTRATE 50 MG TAB PO SCH ×2 (12:07→20:21)
[2018-07-01] MEDS: AMIODARONE 200 MG TAB PO SCH ×3 (12:07→21:32)
--- NOTE | 2018-07-01 12:38 | P.PN ---
Subjective 72-year-old pleasant gentleman with known history of atrial fibrillation came in with A. fib with rapid and rate. Patient had significant improvement since last night patient the is off Cardizem. Patient has moderately depressed LV function because of which I started him on metoprolol 50 twice a day with which his heart rate is well controlled but still in atrial fibrillation is on anticoagulation. If cleared by cardiology patient will be discharged to follow with Dr. Reed as an outpatient. Patient is feeling well not in heart failure exacerbation at this time. Patient does have elevated BNP which is probably chronic elevation. Chest x-ray did not show any pulmonary edema. 06/30/2018 Patient clinically doing well but heart rate is in 130s 140s patient was started on amiodarone drip patient will need evaluation by electrophysiology tomorrow. 07/01/2018 Patient's heart rate remains high then patient will undergo EP study. Patient was evaluated by front end loader operator Dr. Bright, patient is being switched to oral amiodarone. Because of the interaction of Cipro with amiodarone and patient I believe completed course antibiotic are discontinue his ciprofloxacin Constitutional: Denied any fatigue denied any fever. Cardio vascular: denied any chest pain, palpitations Gastrointestinal denied any nausea vomiting Pulmonary: Denied any shortness of breath cough Neurologic denied any new focal deficits All inpatient medications were reviewed and appropriate changes in these medications as dictated in the interval history and assessment and plan. Objective - Vital Signs Vital signs: Vital Signs Temp 97.5 F L 07/01/18 11:44 Pulse 141 H 07/01/18 11:44 Resp 18 07/01/18 11:44 BP 112/76 07/01/18 11:44 Pulse Ox 96 07/01/18 11:44 Intake & Output 06/30/18 07/01/18 07/01/18 18:59 06:59 18:59 Intake Total 720 240 Balance 720 240 Weight 89.7 kg Intake: Oral 720 240 Other: Voiding Method Toilet Toilet Toilet # Voids 3 - Exam PHYSICAL EXAMINATION: GENERAL: The patient is alert and oriented x3, not in any acute distress. Well developed, well nourished. HEENT: Pupils are round and equally reacting to light. EOMI. No scleral icterus. No conjunctival pallor. Normocephalic, atraumatic. No pharyngeal erythema. No thyromegaly. CARDIOVASCULAR: S1 and S2 present. No murmurs, rubs, or gallops. Tachycardic irregularly irregular patient is in atrial flutter PULMONARY: Chest is clear to auscultation, no wheezing or crackles. ABDOMEN: Soft, nontender, nondistended, normoactive bowel sounds. No palpable organomegaly. MUSCULOSKELETAL: No joint swelling or deformity. EXTREMITIES: No cyanosis, clubbing, or pedal edema. NEUROLOGICAL: Gross neurological examination did not reveal any focal deficits. SKIN: No rashes. - Labs CBC & Chem 7: 06/28/18 13:17 07/01/18 05:47 Labs: Abnormal Lab Results - Last 24 Hours (Table) 07/01/18 Range/Units 05:47 Sodium 135 L (137-145) mmol/L Glucose 101 H (74-99) mg/dL Assessment and Plan Plan: -Atrial fibrillation/flutter with rapid ventricular rate patient will be continued on anticoagulation with eliquis, continue amiodarone drip. EP evaluation tomorrow -Congestive heart failure chronic systolic dysfunction patient is either euvolemic or hypovolemic patient is not in volume overload patient will be resumed on JOHNNIE inhibitor lab start him on any diuretic therapy at this time. Patient is bit hyperkalemic we'll repeat potassium tomorrow his EF is 30-35% -Hyponatremia: Possibly hypervolemic hyponatremia improved now -Urinary tract infection: Patient has Proteus mirabilis in the urine in the past patient him printed course with Cipro and antibiotic will be discontinued patient doesn't have any symptoms of UTI at this time -Benign prostatic hypertrophy for which patient is on Flomax which will be continued -Coronary artery disease with previous stents in the past for which patient is on Brilinta which will be continued -Hyperlipidemia -Elevated troponin secondary to atrial fibrillation.
--- NOTE | 2018-07-01 14:22 | P.PN ---
Subjective Progress Note Date: 07/01/18 This is a 72-year-old gentleman with atrial fibrillation with rapid ventricular response. Has a history of CAD with recent cardiac catheterization and stenting done in [place] where he received 2 stents to LAD, one stent to left circumflex and one stent to the RCA. Ejection fraction at that time was reported to be 35-39%. No clear evidence of MN at that time. Also history of hypertension and hyperlipidemia. He was discharged home in [place] with aspirin , Eliquis and Brilinta. He recently underwent CANDIDA and cardioversion at which time he had a long pause following the cardioversion. He was subsequently placed on an event monitor. He was seen in our office for a low-level stress test at which time he was found to be tachycardic and hypotensive. Was sent to the emergency department and found to be in atrial flutter with rapid ventricular response. He was placed on a Cardizem drip. Patient apparently has also been dealing with UTI and some hematuria. Patient's heart rate this morning continues to be in the 140 range, we have added amiodarone 200 mg one tablet by mouth 3 times a day to his medication regime along with the metoprolol 50 mg by mouth twice a day. Overall the patient states that he feels well, he's been up ambulating, no palpitations, no shortness of breath. Blood pressure 112/70, 96% on room air. Sodium 135, potassium 4.7, BUN 19, creatinine 1.0. Objective - Vital Signs Vital signs: Vital Signs Temp 97.5 F L 07/01/18 11:44 Pulse 141 H 07/01/18 11:44 Resp 18 07/01/18 11:44 BP 112/76 07/01/18 11:44 Pulse Ox 96 07/01/18 11:44 Intake & Output 06/30/18 07/01/18 07/01/18 18:59 06:59 18:59 Intake Total 720 240 Balance 720 240 Weight 89.7 kg Intake: Oral 720 240 Other: Voiding Method Toilet Toilet Toilet # Voids 3 - Exam PHYSICAL EXAMINATION: GENERAL: 72-year-old gentleman in no acute distress at the time of my examination HEENT: Head is atraumatic, normocephalic. Pupils equal, round. Sclera anicteric. Conjunctiva are clear. Mucous membranes of the mouth are moist. Neck is supple. There is no elevated jugular venous pressure.] bruit is heard. HEART EXAMINATION: Heart S1 and S2 irregularly irregular systolic murmur is heard. CHEST EXAMINATION: Lungs are clear to auscultation and precussion. No chest wall tenderness is noted on palpation or with deep breathing. ABDOMEN: Soft, nontender. Bowel sounds are heard. No organomegaly noted. EXTREMITIES: 2+ peripheral pulses with no evidence of peripheral edema and no calf tenderness noted. NEUROLOGIC patient is awake, alert and oriented ?-3. . - Labs CBC & Chem 7: 06/28/18 13:17 07/01/18 05:47 Labs: Abnormal Lab Results - Last 24 Hours (Table) 07/01/18 Range/Units 05:47 Sodium 135 L (137-145) mmol/L Glucose 101 H (74-99) mg/dL Assessment and Plan Plan: Assessment and Plan Assessment: #1 typical atrial flutter with rapid ventricular response, persistent #2 CAD with recent stenting of the left circumflex, LAD and RCA #3 hypertension #4 cardiomyopathy, exact etiology unclear, could be partly ischemic as well as tachycardia mediated to my ejection fraction around 35-40% Plan Patient will be initiated on amiodarone 200 mg one tablet by mouth 3 times a day today. Dr. Garcia who is rounding, did speak with Dr. Villegas regarding plan for the patient, he will plan to possibly do an ablation later this week. DNP note has been reviewed, I agree with a documented findings and plan of care. Patient was seen and examined.
--- NOTE | 2018-07-01 15:07 | P.CRDCN ---
History of Present Illness History of present illness: This is Dr. Villegas dictating a consult on this patient Called by Dr. Garcia for evaluation for refractory atrial arrhythmias The patient was interviewed and examined by me IMPRESSION / ASSESSMENT: Symptomatic atrial fibrillation with RVR Failed electrical cardioversion, immediate recurrence Postconversion pauses Typical atrial flutter with RVR now, on oral amiodarone Treated with IV amiodarone over the weekend Refractory to drug therapy Cardiomyopathy Ischemic cardiomyopathy Status post recent stenting, multiple stents placed in [place] PLAN: EPS and efficacy ablation for typical atrial flutter on HPI Increasing shortness of breath with minimal exertion even after coronary stenting ROS: No fever chills or rigors, no cough, phlegm or expectoration, no nausea, vomiting or diarrhea, no hematuria, dysuria, no musculoskeletal complaints, no strokes or seizures, no skin lesions. EXAMINATION REVIEW OF LABS, ECG Past Medical History Past Medical History: Atrial Fibrillation, Hyperlipidemia, Hypertension, Osteoarthritis (OA), Pneumonia, Prostate Disorder Additional Past Medical History / Comment(s): "blood in urine d/t uti", asthma previouslt charted-pt stated never told he had asthma, hx lt wrist fx -casted only, chronic back pain"spurs",currently wearing a heart monitiiro for 30 days. History of Any Multi-Drug Resistant Organisms: None Reported Past Surgical History: Heart Catheterization With Stent Additional Past Surgical History / Comment(s): 05/13 4 stents placed in [place], ep study jennie cardioversion.colonoscopy Past Anesthesia/Blood Transfusion Reactions: No Reported Reaction Date of Last Stent Placement:: 05/13 Smoking Status: Former smoker - Past Family History Mother Family Medical History: Cancer, Chest Pain / Angina, Hypertension, Thyroid Disorder Additional Family Medical History / Comment(s): COLON Father Family Medical History: Diabetes Mellitus, Hypertension Additional Family Medical History / Comment(s): ,pacemaker,brain anuerysm Medications and Allergies Home Medications Medication Instructions Recorded Confirmed Type Tamsulosin [Flomax] 0.4 mg PO QAM 03/02/16 06/28/18 History Apixaban [Eliquis] 5 mg PO BID 06/05/18 06/28/18 History Nitroglycerin Sl Tabs [Nitrostat] 0.4 mg SUBLINGUAL Q5M PRN 06/05/18 06/28/18 History Rosuvastatin [Crestor] 10 mg PO HS 06/05/18 06/28/18 History Ticagrelor [Brilinta] 90 mg PO BID 06/05/18 06/28/18 History Ciprofloxacin HCl [Cipro] 500 mg PO BID 06/28/18 06/28/18 History HYDROcodone/APAP 10-325MG [[place] 1 tablet PO Q8HR PRN 06/28/18 06/28/18 History 10-325] Lisinopril [Prinivil] 5 mg PO DAILY 06/28/18 06/28/18 History Metoprolol Tartrate [Lopressor] 50 mg PO BID #60 tab 06/29/18 Rx Allergies Allergy/AdvReac Type Severity Reaction Status Date / Time No Known Allergies Allergy Verified 06/28/18 14:30 Physical Exam Vitals: Vital Signs Temp Pulse Pulse Pulse Resp BP Pulse Ox 07/01/18 11:44 97.5 F L 145 H 141 H 150 H 18 112/76 96 07/01/18 08:00 97.9 F 145 H 18 99/67 100 07/01/18 07:22 146 H 141 H 148 H 07/01/18 04:00 98.2 F 146 H 17 102/73 100 07/01/18 03:44 141 H 18 07/01/18 00:05 98.1 F 148 H 17 99/57 96 06/30/18 20:15 98.4 F 134 H 17 102/71 98 06/30/18 16:00 148 H 139 H 06/30/18 15:48 97.6 F 148 H 18 113/83 100 Intake and Output 07/01/18 07/01/18 07/01/18 06:59 14:59 22:59 Intake Total 240 Balance 240 Intake: Oral 240 Other: Voiding Method Toilet Toilet # Voids 3 Weight 89.7 kg Results 06/28/18 13:17 07/01/18 05:47 Comprehensive Metabolic Panel 07/01/18 Range/Units 05:47 Sodium 135 L (137-145) mmol/L Potassium 4.7 (3.5-5.1) mmol/L Chloride 107 (98-107) mmol/L Carbon Dioxide 22 (22-30) mmol/L BUN 19 (9-20) mg/dL Creatinine 1.09 (0.66-1.25) mg/dL Glucose 101 H (74-99) mg/dL Calcium 8.8 (8.4-10.2) mg/dL Current Medications Generic Name Dose Route Start Last Admin Trade Name Freq PRN Reason Stop Dose Admin Hydrocodone Bitart/Acetaminophen 1 each 06/28/18 21:33 06/30/18 22:49 [place] 10 PO 1 each Q8HR PRN Administration Pain Amiodarone HCl 200 mg 07/01/18 11:30 07/01/18 12:07 Cordarone PO 200 mg TID HERLINDA Administration Atorvastatin Calcium 20 mg 06/28/18 21:00 06/30/18 20:01 Lipitor PO 20 mg HS HERLINDA Administration Clopidogrel Bisulfate 75 mg 06/30/18 09:00 07/01/18 12:06 Plavix PO 75 mg DAILY HERLINDA Administration Sodium Chloride 1,000 mls @ 20 mls/hr 07/01/18 15:15 Saline 0.9% IV .Q24H HERLINDA Metoprolol Tartrate 50 mg 06/28/18 21:00 07/01/18 12:07 Lopressor PO 50 mg BID HERLINDA Administration Naloxone HCl 0.2 mg 06/28/18 15:55 Narcan IV Q2M PRN Opioid Reversal Rivaroxaban 20 mg 07/01/18 17:30 Xarelto PO W/SUPPER HERLINDA Tamsulosin HCl 0.4 mg 06/29/18 09:00 07/01/18 12:06 Flomax PO 0.4 mg QAM HERLINDA Administration Intake and Output 07/01/18 07/01/18 07/01/18 06:59 14:59 22:59 Intake Total 240 Balance 240 Intake: Oral 240 Other: Voiding Method Toilet Toilet # Voids 3 Weight 89.7 kg 06/28/18 13:17 07/01/18 05:47
[2018-07-01] MEDS: HYDROcodone/APAP 10-325MG 1 EACH TAB PO PRN ×2 (15:57→22:56)
[2018-07-01] MEDS: SODIUM CHLORIDE 0.9% 1,000 ML IV SCH (16:32)
[2018-07-01] MEDS: RIVAROXABAN 20 MG TAB PO SCH (16:47)
[2018-07-01] MEDS: ATORVASTATIN 20 MG TAB PO SCH (20:21)
[2018-07-02] MEDS: METOPROLOL TARTRATE 50 MG TAB PO SCH ×2 (08:23→20:38)
[2018-07-02] MEDS: TAMSULOSIN 0.4 MG CAP.ER.24H PO SCH (08:23)
[2018-07-02] MEDS: AMIODARONE 200 MG TAB PO SCH ×3 (08:23→20:38)
[2018-07-02] MEDS: CLOPIDOGREL 75 MG TAB PO SCH (08:23)
[2018-07-02] MEDS: CIPROFLOXACIN HCL 500 MG TAB PO SCH ×2 (08:23→20:38)
--- NOTE | 2018-07-02 12:23 | P.PN ---
Subjective 72-year-old pleasant gentleman with known history of atrial fibrillation came in with A. ayush with rapid and rate. Patient had significant improvement since last night patient the is off Cardizem. Patient has moderately depressed LV function because of which I started him on metoprolol 50 twice a day with which his heart rate is well controlled but still in atrial fibrillation is on anticoagulation. If cleared by cardiology patient will be discharged to follow with Dr. Reed as an outpatient. Patient is feeling well not in heart failure exacerbation at this time. Patient does have elevated BNP which is probably chronic elevation. Chest x-ray did not show any pulmonary edema. 06/30/2018 Patient clinically doing well but heart rate is in 130s 140s patient was started on amiodarone drip patient will need evaluation by electrophysiology tomorrow. 07/01/2018 Patient's heart rate remains high then patient will undergo EP study. Patient was evaluated by outside event sales specialist Dr. Bright, patient is being switched to oral amiodarone. Because of the interaction of Cipro with amiodarone and patient I believe completed course antibiotic are discontinue his ciprofloxacin 07/02/2018 I discontinued antibiotic SA but patient had hematuria can still concerned about urinary tract infection and hematuria secondary to anticoagulation. Patient was resumed on Cipro last night. I'll obtain urine analysis if that's negative and Plavix will be discontinued will also obtain opinion from urology regarding his requirement of antibiotics with his hematuria Constitutional: Denied any fatigue denied any fever. Cardio vascular: denied any chest pain, palpitations Gastrointestinal denied any nausea vomiting Pulmonary: Denied any shortness of breath cough Neurologic denied any new focal deficits All inpatient medications were reviewed and appropriate changes in these medications as dictated in the interval history and assessment and plan. Objective - Vital Signs Vital signs: Vital Signs Temp 97 F L 07/02/18 08:00 Pulse 144 H 07/02/18 08:00 Resp 16 07/02/18 08:00 BP 99/74 07/02/18 08:00 Pulse Ox 99 07/02/18 08:00 Intake & Output 07/01/18 07/02/18 07/02/18 18:59 06:59 18:59 Intake Total 180 240 Output Total 500 Balance 180 -260 Intake: Oral 180 240 Output: Urine 500 Other: Voiding Method Toilet Toilet Toilet # Voids 3 - Exam PHYSICAL EXAMINATION: GENERAL: The patient is alert and oriented x3, not in any acute distress. Well developed, well nourished. HEENT: Pupils are round and equally reacting to light. EOMI. No scleral icterus. No conjunctival pallor. Normocephalic, atraumatic. No pharyngeal erythema. No thyromegaly. CARDIOVASCULAR: S1 and S2 present. No murmurs, rubs, or gallops. Tachycardic irregularly irregular patient is in atrial flutter PULMONARY: Chest is clear to auscultation, no wheezing or crackles. ABDOMEN: Soft, nontender, nondistended, normoactive bowel sounds. No palpable organomegaly. MUSCULOSKELETAL: No joint swelling or deformity. EXTREMITIES: No cyanosis, clubbing, or pedal edema. NEUROLOGICAL: Gross neurological examination did not reveal any focal deficits. SKIN: No rashes. - Labs CBC & Chem 7: 06/28/18 13:17 07/01/18 05:47 Assessment and Plan Plan: -Atrial fibrillation/flutter with rapid ventricular rate patient will be continued on anticoagulation with eliquis, continue amiodarone drip. Patient will undergo EP study and ablation on -Congestive heart failure chronic systolic dysfunction patient is either euvolemic or hypovolemic patient is not in volume overload patient will be resumed on JOHNNIE inhibitor lab start him on any diuretic therapy at this time. Patient is bit hyperkalemic we'll repeat potassium tomorrow his EF is 30-35% -Hyponatremia: Possibly hypervolemic hyponatremia improved now -Urinary tract infection: Patient has Proteus mirabilis in the urine in the past patient him printed course with Leonidas, antibiotic management as mentioned above patient has hematuria secondary to anticoagulation -Benign prostatic hypertrophy for which patient is on Flomax which will be continued -Coronary artery disease with previous stents in the past for which patient is on Brilinta which will be continued -Hyperlipidemia -Elevated troponin secondary to atrial fibrillation.
--- NOTE | 2018-07-02 12:55 | P.PN ---
Subjective this patient was admitted with the atrial flutter and rapid ventricular response. His and has been taking oral amiodarone and by mouth Lopressor. Patient has a moderately impaired left ventricular systolic function. Since a heart rate remains in the range of 1:30 to 150 patient will undergo atrial flutter ablation on . Objective - Vital Signs Vital signs: Vital Signs Temp 97 F L 07/02/18 08:00 Pulse 144 H 07/02/18 08:00 Resp 16 07/02/18 08:00 BP 99/74 07/02/18 08:00 Pulse Ox 99 07/02/18 08:00 Intake & Output 07/01/18 07/02/18 07/02/18 18:59 06:59 18:59 Intake Total 180 240 Output Total 500 Balance 180 -260 Intake: Oral 180 240 Output: Urine 500 Other: Voiding Method Toilet Toilet Toilet # Voids 3 - Exam Patient's vital signs are reviewed. The patient is alert awake and in no acute distress. HEENT negative. Neck-supple no increase in JVP noted no carotid bruits noted. Chest-symmetrical. Heart-first and second heart sounds are normal. No S3 or S4 is noted. No significant murmurs are noted. Lungs bilateral good at entry is noted. No rales or rhonchi are noted Abdomen-soft. Liver and spleen are not enlarged. The bowel sounds are normal. No tenderness noted Extremities-peripheral pulses since are 2+. No significant leg edema noted. Neuro-no significant gross abnormality noted. - Labs CBC & Chem 7: 06/28/18 13:17 07/01/18 05:47 Assessment and Plan Plan: patient persists into atrial flutter with a rapid ventricular response. I we will continue the current medications. Patient will undergo an ablation on .
[2018-07-02 13:59] LABS: Appearance,Urine Cloudy (Clear); Bilirubin,Urine Negative (Negative); Blood,Urine Large (Negative); Color,Urine Light Red; Glucose,Urine (UA) Negative (Negative); Ketones,Urine Negative (Negative); Leukocyte Esterase,Urine Small (Negative); Mucus,Urine Many /hpf; Nitrite,Urine Negative (Negative); Protein,Urine 1+ (Negative); RBC,Urine >182 /hpf (0-5); Specific Gravity,Urine 1.017 (1.001-1.035); Squamous Epithelial Cell,Urine 1 /hpf (0-4); Urobilinogen,Urine <2.0 mg/dL (<2.0); WBC,Urine 59 /hpf (0-5)
[2018-07-02] MEDS: HYDROcodone/APAP 10-325MG 1 EACH TAB PO PRN ×2 (15:53→22:55)
[2018-07-02] MEDS: SODIUM CHLORIDE 0.9% 1,000 ML IV SCH (15:54)
--- NOTE | 2018-07-02 16:22 | P.GSCN ---
History of Present Illness Consult date: 07/02/18 History of present illness: The patient is 72 and in the hospital with cardiac arrythmia. He is being treated for this. He is on anticoagulation He had a uti diagnosed by Dr Torrez, proteus mirabilis 06/24/2018 He waws placed on culture specific cipro. This was discontinued. He had hematuria yesterday. We are asked to see if he still has a uti and the associated hematuria with this. The patient was treated for 7 days. States his symptoms have disappeared. His urinalysis still had 182 red cells and 59 white cells Past Medical History Past Medical History: Atrial Fibrillation, Hyperlipidemia, Hypertension, Osteoarthritis (OA), Pneumonia, Prostate Disorder Additional Past Medical History / Comment(s): "blood in urine d/t uti", asthma previouslt charted-pt stated never told he had asthma, hx lt wrist fx -casted only, chronic back pain"spurs",currently wearing a heart monitiiro for 30 days. History of Any Multi-Drug Resistant Organisms: None Reported Past Surgical History: Heart Catheterization With Stent Additional Past Surgical History / Comment(s): 05/13 4 stents placed in [place], ep study jennie cardioversion.colonoscopy Past Anesthesia/Blood Transfusion Reactions: No Reported Reaction Date of Last Stent Placement:: 05/13 Smoking Status: Former smoker - Past Family History Mother Family Medical History: Cancer, Chest Pain / Angina, Hypertension, Thyroid Disorder Additional Family Medical History / Comment(s): COLON Father Family Medical History: Diabetes Mellitus, Hypertension Additional Family Medical History / Comment(s): ,pacemaker,brain anuerysm Medications and Allergies Home Medications Medication Instructions Recorded Confirmed Type Tamsulosin [Flomax] 0.4 mg PO QAM 03/02/16 06/28/18 History Apixaban [Eliquis] 5 mg PO BID 06/05/18 06/28/18 History Nitroglycerin Sl Tabs [Nitrostat] 0.4 mg SUBLINGUAL Q5M PRN 06/05/18 06/28/18 History Rosuvastatin [Crestor] 10 mg PO HS 06/05/18 06/28/18 History Ticagrelor [Brilinta] 90 mg PO BID 06/05/18 06/28/18 History Ciprofloxacin HCl [Cipro] 500 mg PO BID 11/09/18 11/09/18 History HYDROcodone/APAP 10-325MG [[place] 1 tablet PO Q8HR PRN 06/28/18 06/28/18 History 10-325] Lisinopril [Prinivil] 5 mg PO DAILY 06/28/18 06/28/18 History Metoprolol Tartrate [Lopressor] 50 mg PO BID #60 tab 06/29/18 Rx Allergies Allergy/AdvReac Type Severity Reaction Status Date / Time No Known Allergies Allergy Verified 06/28/18 14:30 Surgical - Exam Vital Signs Temp Pulse Resp BP Pulse Ox 96.8 F L 80 20 88/66 96 06/28/18 12:48 06/28/18 12:48 06/28/18 12:48 06/28/18 12:48 06/28/18 12:48 - General well developed, well nourished, no distress - Eyes PERRL - ENT no hearing loss - Neck trachea midline - Respiratory normal expansion, normal respiratory effort - Cardiovascular Rhythm: irregularly irregular - Abdomen Abdomen: soft, non tender - Genitourinary normal penis with no external lesions, testicles present - Neurologic normal coordination, normal sensation - Musculoskeletal normal posture - Psychiatric oriented to time, oriented to person, oriented to place, speech is normal, memory intact Results Impression: Recent urinary tract infection with Proteus mirabilis. Fibrillation with rapid ventricular response. Hematuria secondary to UTI aggravated by anticoagulation. Recommendation: The question is whether the urine infection has been completely treated. The urine is still somewhat inflamed but that can be just due to the original infection. The hematuria is obviously aggravated by anticoagulation. The only way to know whether the infection is cleared is to repeat a urine culture however this will be affected by the fact that he is on antibiotics. This Cipro has been restarted which is reasonable. I will notify of his admission. - Labs 06/28/18 13:17 07/01/18 05:47
[2018-07-02] MEDS: RIVAROXABAN 20 MG TAB PO SCH (17:32)
[2018-07-02] MEDS: ATORVASTATIN 20 MG TAB PO SCH (20:38)
[2018-07-03] MEDS: HYDROcodone/APAP 10-325MG 1 EACH TAB PO PRN ×3 (06:17→22:47)
[2018-07-03] MEDS: CLOPIDOGREL 75 MG TAB PO SCH (09:06)
[2018-07-03] MEDS: TAMSULOSIN 0.4 MG CAP.ER.24H PO SCH (09:06)
[2018-07-03] MEDS: CIPROFLOXACIN HCL 500 MG TAB PO SCH ×2 (09:06→19:58)
[2018-07-03] MEDS: METOPROLOL TARTRATE 50 MG TAB PO SCH ×2 (09:06→19:58)
[2018-07-03] MEDS: AMIODARONE 200 MG TAB PO SCH ×3 (09:06→22:47)
--- NOTE | 2018-07-03 11:07 | P.PN ---
Progress Note - Text Progress Note Date: 07/03/18 The patient is afebrile. He says his urine has cleared considerably since he was admitted and he no longer has severe dysuria. As noted by Dr. Lo he did have a Proteus mirabilis urinary tract infection and was started on Cipro on 06/24. He should be continued on Cipro pending results of the urine culture which was obtained during this admission. He is scheduled to see me on 07/09 for follow-up. I will set him up for imaging of the upper urinary system and cystoscopy for further evaluation of the infection and hematuria. This will be done as an outpatient.
--- NOTE | 2018-07-03 11:20 | P.PN ---
Subjective 72-year-old pleasant gentleman with known history of atrial fibrillation came in with Nick. ayush with rapid and rate. Patient had significant improvement since last night patient the is off Cardizem. Patient has moderately depressed LV function because of which I started him on metoprolol 50 twice a day with which his heart rate is well controlled but still in atrial fibrillation is on anticoagulation. If cleared by cardiology patient will be discharged to follow with Dr. Reed as an outpatient. Patient is feeling well not in heart failure exacerbation at this time. Patient does have elevated BNP which is probably chronic elevation. Chest x-ray did not show any pulmonary edema. 06/30/2018 Patient clinically doing well but heart rate is in 130s 140s patient was started on amiodarone drip patient will need evaluation by electrophysiology tomorrow. 07/01/2018 Patient's heart rate remains high then patient will undergo EP study. Patient was evaluated by distribution technician Dr. Bright, patient is being switched to oral amiodarone. Because of the interaction of Cipro with amiodarone and patient I believe completed course antibiotic are discontinue his ciprofloxacin 07/02/2018 I discontinued antibiotic SA but patient had hematuria can still concerned about urinary tract infection and hematuria secondary to anticoagulation. Patient was resumed on Cipro last night. I'll obtain urine analysis if that's negative and Plavix will be discontinued will also obtain opinion from urology regarding his requirement of antibiotics with his hematuria 07/03/2018 Patient's urine is significantly abnormal and the patient will be continued on ciprofloxacin no other overnight events. Constitutional: Denied any fatigue denied any fever. Cardio vascular: denied any chest pain, palpitations Gastrointestinal denied any nausea vomiting Pulmonary: Denied any shortness of breath cough Neurologic denied any new focal deficits All inpatient medications were reviewed and appropriate changes in these medications as dictated in the interval history and assessment and plan. Objective - Vital Signs Vital signs: Vital Signs Temp 97.2 F L 07/03/18 04:00 Pulse 141 H 07/03/18 04:00 Resp 17 07/03/18 04:00 BP 102/73 07/03/18 04:00 Pulse Ox 98 07/03/18 04:00 Intake & Output 07/02/18 07/03/18 07/03/18 18:59 06:59 18:59 Intake Total 720 380 240 Output Total 500 500 Balance 220 380 -260 Weight 91.6 kg Intake: IV 20 Invasive Line 2 20 Oral 720 360 240 Output: Urine 500 500 Other: Voiding Method Toilet Toilet # Voids 1 # Bowel Movements 0 - Exam PHYSICAL EXAMINATION: GENERAL: The patient is alert and oriented x3, not in any acute distress. Well developed, well nourished. HEENT: Pupils are round and equally reacting to light. EOMI. No scleral icterus. No conjunctival pallor. Normocephalic, atraumatic. No pharyngeal erythema. No thyromegaly. CARDIOVASCULAR: S1 and S2 present. No murmurs, rubs, or gallops. Tachycardic irregularly irregular patient is in atrial flutter PULMONARY: Chest is clear to auscultation, no wheezing or crackles. ABDOMEN: Soft, nontender, nondistended, normoactive bowel sounds. No palpable organomegaly. MUSCULOSKELETAL: No joint swelling or deformity. EXTREMITIES: No cyanosis, clubbing, or pedal edema. NEUROLOGICAL: Gross neurological examination did not reveal any focal deficits. SKIN: No rashes. - Labs CBC & Chem 7: 06/28/18 13:17 07/01/18 05:47 Labs: Abnormal Lab Results - Last 24 Hours (Table) 07/02/18 Range/Units 13:25 Urine Protein 1+ H (Negative) Urine Blood Large H (Negative) Ur Leukocyte Esterase Small H (Negative) Urine RBC >182 H (0-5) /hpf Urine WBC 59 H (0-5) /hpf Urine Mucus Many H (None) /hpf Assessment and Plan Plan: -Atrial fibrillation/flutter with rapid ventricular rate patient will be continued on anticoagulation with eliquis, continue amiodarone drip. Patient will undergo EP study and ablation on . Patient's heart rate remains high -Congestive heart failure chronic systolic dysfunction patient is either euvolemic or hypovolemic patient is not in volume overload patient will be resumed on JOHNNEI inhibitor lab start him on any diuretic therapy at this time. Patient is bit hyperkalemic we'll repeat potassium tomorrow his EF is 30-35% -Hyponatremia: Possibly hypervolemic hyponatremia improved now -Urinary tract infection: Patient has Proteus mirabilis in the urine in the past patient him printed course with Cipro, antibiotic management as mentioned above patient has hematuria secondary to anticoagulation, hematuria improved now -Benign prostatic hypertrophy for which patient is on Flomax which will be continued -Coronary artery disease with previous stents in the past for which patient is on Brilinta which will be continued -Hyperlipidemia -Elevated troponin secondary to atrial fibrillation.
--- NOTE | 2018-07-03 15:38 | P.PN ---
Subjective Progress Note Date: 07/03/18 This is a 72-year-old gentleman with atrial fibrillation with rapid ventricular response. Has a history of CAD with recent cardiac catheterization and stenting done in [place] where he received 2 stents to LAD, one stent to left circumflex and one stent to the RCA. Ejection fraction at that time was reported to be 35-39%. No clear evidence of OH at that time. Also history of hypertension and hyperlipidemia. He was discharged home in [place] with aspirin , Eliquis and Brilinta. He recently underwent CANDIDA and cardioversion at which time he had a long pause following the cardioversion. He was subsequently placed on an event monitor. He was seen in our office for a low-level stress test at which time he was found to be tachycardic and hypotensive. Was sent to the emergency department and found to be in atrial flutter with rapid ventricular response. He was placed on a Cardizem drip. Patient apparently has also been dealing with UTI and some hematuria. Patient's heart rate this morning continues to be in the 140 range, we have added amiodarone 200 mg one tablet by mouth 3 times a day to his medication regime along with the metoprolol 50 mg by mouth twice a day. Overall the patient states that he feels well, he's been up ambulating, no palpitations, no shortness of breath. Blood pressure 112/70, 96% on room air. Sodium 135, potassium 4.7, BUN 19, creatinine 1.0. 07/02/2018 Patient was seen and examined this morning, overall feels well. Heart rate primarily in the 130s to 140s today. He has been up ambulating without any difficulty. He is scheduled to undergo his ablation for atrial fibrillation tomorrow. Blood pressure 110/70. Sodium 135, potassium 4.7, BUN 19, creatinine 1.09. Objective - Vital Signs Vital signs: Vital Signs Temp 96.5 F L 07/03/18 12:00 Pulse 138 H 07/03/18 12:00 Resp 18 07/03/18 12:00 BP 95/72 07/03/18 12:00 Pulse Ox 100 07/03/18 12:00 Intake & Output 07/02/18 07/03/18 07/03/18 18:59 06:59 18:59 Intake Total 720 380 480 Output Total 500 500 Balance 220 380 -20 Weight 91.6 kg Intake: IV 20 Invasive Line 2 20 Oral 720 360 480 Output: Urine 500 500 Other: Voiding Method Toilet Toilet # Voids 1 # Bowel Movements 0 - Exam PHYSICAL EXAMINATION: GENERAL: 72-year-old gentleman in no acute distress at the time of my examination HEENT: Head is atraumatic, normocephalic. Pupils equal, round. Sclera anicteric. Conjunctiva are clear. Mucous membranes of the mouth are moist. Neck is supple. There is no elevated jugular venous pressure.] bruit is heard. HEART EXAMINATION: Heart S1 and S2 irregularly irregular systolic murmur is heard. CHEST EXAMINATION: Lungs are clear to auscultation and precussion. No chest wall tenderness is noted on palpation or with deep breathing. ABDOMEN: Soft, nontender. Bowel sounds are heard. No organomegaly noted. EXTREMITIES: 2+ peripheral pulses with no evidence of peripheral edema and no calf tenderness noted. NEUROLOGIC patient is awake, alert and oriented ?-3. . - Labs CBC & Chem 7: 06/28/18 13:17 07/01/18 05:47 Assessment and Plan Plan: Assessment and Plan Assessment: #1 typical atrial flutter with rapid ventricular response, persistent #2 CAD with recent stenting of the left circumflex, LAD and RCA #3 hypertension #4 cardiomyopathy, exact etiology unclear, could be partly ischemic as well as tachycardia mediated to my ejection fraction around 35-40% Plan We will continue the patient on his current medications. He is scheduled tomorrow to undergo ablation for his atrial fibrillation. We'll continue to follow. DNP note has been reviewed, I agree with a documented findings and plan of care. Patient was seen and examined.
[2018-07-03] MEDS: SODIUM CHLORIDE 0.9% 1,000 ML IV SCH (16:15)
[2018-07-03] MEDS: RIVAROXABAN 20 MG TAB PO SCH (17:34)
[2018-07-03] MEDS: ATORVASTATIN 20 MG TAB PO SCH (19:58)
[2018-07-04] MEDS ORDERED: DEXAMETHASONE SOD PHOSPHATE 10 MG/ML 1 ML VIAL IV ONE (01:04)
[2018-07-04] MEDS ORDERED: MIDAZOLAM 2 MG/2 ML VIAL IV PRN (01:04)
[2018-07-04] MEDS ORDERED: LIDOCAINE 1% 20 ML VIAL (10MG/ML) FOR IV START INTRADERMA PRN (01:04)
[2018-07-04] MEDS ORDERED: LACTATED RINGERS 1,000 ML IV SCH (01:15)
[2018-07-04] MEDS ORDERED: ONDANSETRON 4 MG/2 ML VIAL IVP ONE (06:00)
[2018-07-04] MEDS: CIPROFLOXACIN HCL 500 MG TAB PO SCH ×2 (06:15→21:25)
[2018-07-04] MEDS: AMIODARONE 200 MG TAB PO SCH ×2 (06:15→21:46)
[2018-07-04] MEDS: METOPROLOL TARTRATE 50 MG TAB PO SCH ×2 (06:15→21:25)
[2018-07-04] MEDS: CLOPIDOGREL 75 MG TAB PO SCH (06:15)
[2018-07-04] MEDS: TAMSULOSIN 0.4 MG CAP.ER.24H PO SCH (06:15)
[2018-07-04 07:53] LABS: HCT 31.1 % (39.0-53.0); HGB 10.1 gm/dL (13.0-17.5); Hypochromasia Marked; MCH 31.5 pg (25.0-35.0); MCHC 32.4 g/dL (31.0-37.0); MCV 97.2 fL (80.0-100.0); Mean Platelet Volume 6.6; Platelet Count 336 k/uL (150-450); Poikilocytosis Slight; RDW 14.6 % (11.5-15.5); WBC 11.2 k/uL (3.8-10.6)
[2018-07-04 07:54] LABS: Calcium 8.8 mg/dL (8.4-10.2); Magnesium 1.9 mg/dL (1.6-2.3); Potassium 4.5 mmol/L (3.5-5.1)
[2018-07-04] MEDS: HYDROcodone/APAP 10-325MG 1 EACH TAB PO PRN (08:05)
--- NOTE | 2018-07-04 10:13 | P.PN ---
Subjective 72-year-old pleasant gentleman with known history of atrial fibrillation came in with Nick. ayush with rapid and rate. Patient had significant improvement since last night patient the is off Cardizem. Patient has moderately depressed LV function because of which I started him on metoprolol 50 twice a day with which his heart rate is well controlled but still in atrial fibrillation is on anticoagulation. If cleared by cardiology patient will be discharged to follow with Dr. Reed as an outpatient. Patient is feeling well not in heart failure exacerbation at this time. Patient does have elevated BNP which is probably chronic elevation. Chest x-ray did not show any pulmonary edema. 06/30/2018 Patient clinically doing well but heart rate is in 130s 140s patient was started on amiodarone drip patient will need evaluation by electrophysiology tomorrow. 07/01/2018 Patient's heart rate remains high then patient will undergo EP study. Patient was evaluated by central supply technician supervisor Dr. Bright, patient is being switched to oral amiodarone. Because of the interaction of Cipro with amiodarone and patient I believe completed course antibiotic are discontinue his ciprofloxacin 07/02/2018 I discontinued antibiotic SA but patient had hematuria can still concerned about urinary tract infection and hematuria secondary to anticoagulation. Patient was resumed on Cipro last night. I'll obtain urine analysis if that's negative and Plavix will be discontinued will also obtain opinion from urology regarding his requirement of antibiotics with his hematuria 07/03/2018 Patient's urine is significantly abnormal and the patient will be continued on ciprofloxacin no other overnight events. 07/04/2018 No overnight events patient will undergo ablation procedure today Constitutional: Denied any fatigue denied any fever. Cardio vascular: denied any chest pain, palpitations Gastrointestinal denied any nausea vomiting Pulmonary: Denied any shortness of breath cough Neurologic denied any new focal deficits All inpatient medications were reviewed and appropriate changes in these medications as dictated in the interval history and assessment and plan. Objective - Vital Signs Vital signs: Vital Signs Temp 97.7 F 07/03/18 20:00 Pulse 142 H 07/04/18 04:00 Resp 20 07/04/18 04:00 BP 113/74 07/04/18 04:00 Pulse Ox 100 07/04/18 04:00 Intake & Output 07/03/18 07/04/18 07/04/18 18:59 06:59 18:59 Intake Total 720 240 Output Total 500 Balance 220 240 Weight 91.6 kg Intake: Oral 720 240 Output: Urine 500 Other: Voiding Method Toilet # Voids 1 1 # Bowel Movements 1 - Exam PHYSICAL EXAMINATION: GENERAL: The patient is alert and oriented x3, not in any acute distress. Well developed, well nourished. HEENT: Pupils are round and equally reacting to light. EOMI. No scleral icterus. No conjunctival pallor. Normocephalic, atraumatic. No pharyngeal erythema. No thyromegaly. CARDIOVASCULAR: S1 and S2 present. No murmurs, rubs, or gallops. Tachycardic irregularly irregular patient is in atrial flutter PULMONARY: Chest is clear to auscultation, no wheezing or crackles. ABDOMEN: Soft, nontender, nondistended, normoactive bowel sounds. No palpable organomegaly. MUSCULOSKELETAL: No joint swelling or deformity. EXTREMITIES: No cyanosis, clubbing, or pedal edema. NEUROLOGICAL: Gross neurological examination did not reveal any focal deficits. SKIN: No rashes. - Labs CBC & Chem 7: 07/04/18 07:17 07/04/18 07:17 Labs: Abnormal Lab Results - Last 24 Hours (Table) 07/04/18 07/04/18 Range/Units 07:17 07:17 WBC 11.2 H (3.8-10.6) k/uL RBC 3.20 L (4.30-5.90) m/uL Hgb 10.1 L (13.0-17.5) gm/dL Hct 31.1 L (39.0-53.0) % Chloride 108 H (98-107) mmol/L Carbon Dioxide 21 L (22-30) mmol/L Assessment and Plan Plan: -Atrial fibrillation/flutter with rapid ventricular rate patient will be continued on anticoagulation with eliquis, continue amiodarone drip. Patient will undergo EP study and ablation possibly today. Patient's heart rate remains high -Congestive heart failure chronic systolic dysfunction patient is either euvolemic or hypovolemic patient is not in volume overload patient will be resumed on JOHNNIE inhibitor lab start him on any diuretic therapy at this time. Patient is bit hyperkalemic we'll repeat potassium tomorrow his EF is 30-35% -Hyponatremia: Possibly hypervolemic hyponatremia improved now -Urinary tract infection: Patient has Proteus mirabilis in the urine in the past patient him printed course with Cipro, antibiotic management as mentioned above patient has hematuria secondary to anticoagulation, hematuria improved now -Benign prostatic hypertrophy for which patient is on Flomax which will be continued -Coronary artery disease with previous stents in the past for which patient is on Brilinta which will be continued -Hyperlipidemia -Elevated troponin secondary to atrial fibrillation.
[2018-07-04 14:29] VITALS: BMI 26.6
[2018-07-04] MEDS ORDERED: SUCCINYLCHOLINE CHLORIDE 100 MG/5 ML SYR IV ONE (16:30)
[2018-07-04] MEDS ORDERED: PROPOFOL 10 MG/ML 20 ML VIAL IV ONE (16:30)
[2018-07-04] MEDS ORDERED: fentaNYL (PF) 50 MCG/ML 2 ML AMP ONE (16:30)
[2018-07-04] MEDS ORDERED: PHENYLEPHRINE-0.9% NACL SYG 1 MG/10 ML SYRINGE ONE (16:30)
[2018-07-04] MEDS ORDERED: ROCURONIUM BROMIDE 10 MG/ML 10 ML VIAL IV ONE (16:30)
[2018-07-04] MEDS ORDERED: LIDOCAINE 1% INJ 10MG/ML (20 ML MDV) ONE ×2 (16:30→16:43)
[2018-07-04] MEDS ORDERED: NEOSTIGMINE 1 MG/ML 10 ML VIAL ONE (16:30)
[2018-07-04] MEDS ORDERED: MIDAZOLAM 2 MG/2 ML VIAL ONE (16:30)
[2018-07-04] MEDS ORDERED: IV FLUID CONTINUATION 800 ML IV ONE (16:30)
[2018-07-04] MEDS ORDERED: GLYCOPYRROLATE 0.2 MG/ML 2 ML VIAL ONE (16:30)
[2018-07-04] MEDS ORDERED: LIDOCAINE 1% INJ 10MG/ML (20 ML MDV) SQ ONE (17:09)
[2018-07-04] MEDS ORDERED: ACETAMINOPHEN TAB 325 MG TAB PO PRN (19:03)
[2018-07-04] MEDS ORDERED: HYDROcodone/APAP 5-325MG 1 EACH TAB PO PRN (19:03)
[2018-07-04] MEDS ORDERED: ACETAMINOPHEN IV (For NPO) 1,000 MG in EMPTY BAG 1 BAG IVPB ONE (19:03)
[2018-07-04] MEDS: ATORVASTATIN 20 MG TAB PO SCH (21:25)
[2018-07-04] MEDS: SODIUM CHLORIDE 0.9% 1,000 ML IV SCH (21:45)
[2018-07-04] MEDS: RIVAROXABAN 20 MG TAB PO SCH (22:10)
[2018-07-05] MEDS: CIPROFLOXACIN HCL 500 MG TAB PO SCH (08:46)
[2018-07-05] MEDS: CLOPIDOGREL 75 MG TAB PO SCH (08:46)
[2018-07-05] MEDS: METOPROLOL TARTRATE 50 MG TAB PO SCH (08:47)
[2018-07-05] MEDS: TAMSULOSIN 0.4 MG CAP.ER.24H PO SCH (08:47)
[2018-07-05] MEDS: HYDROcodone/APAP 10-325MG 1 EACH TAB PO PRN (08:47)
[2018-07-05] MEDS ORDERED: AMIODARONE 200 MG TAB PO SCH (09:00)
--- NOTE | 2018-07-05 09:52 | PCN ---
PROCEDURE NOTE Dominick Swartz is a 76-year-old male patient who has atrial fibrillation with RVR and now on IV amiodarone. He has atrial flutter. He has failed electrical cardioversion performed by Dr. Reed. He was brought in for an atrial flutter ablation. Patient brought to the EP lab in a fasting state. Written informed consent was obtained prior to the procedure. The procedure was performed under general anesthesia. The right and left groins were prepped and draped as per protocol. Venous sheaths were placed in the right and left femoral veins. Diagnostic and mapping ablation catheters were placed. Intracardiac echo catheter was placed. The coronary sinus was accessed and a concentric activation was noted. The mapping ablation catheter was placed in the right atrial isthmus and the was in typical atrial flutter that was confirmed with entrainment mapping within the isthmus, the right atrial isthmus circuit. The right atrial isthmus pacing maneuvers. The tachycardia cycle length was 240 milliseconds, QRS 131 milliseconds. The AH interval during in sinus rhythm later was 133 milliseconds, HV interval was 33 milliseconds. The intracardiac echocardiography was performed. 3D anatomic mapping was performed. Electroanatomic mapping of the right atrial isthmus was performed. RF ablation was applied from the tricuspid anulus to the eustachian ridge. The patient had a large pouch. This was a very long procedure and a very long isthmus that required extensive ablation along the isthmus and finally within the pouch, close to the eustachian ridge, termination occurred. Following that, a complete anatomic line of block was made. The isthmus conduction times were long and greater than 200 milliseconds, differential pacing bidirectional block was proven. Split potentials of greater than 135 milliseconds were noted all along the line with pacing maneuvers. Non capture was noted along the line at high outputs. Thereafter in sinus rhythm, AH interval 133 milliseconds, HV interval 33 milliseconds, VA Wenckebach block 550 milliseconds. AV node Wenckebach block 370 milliseconds. Sinus node recovery times, recovery time was prolonged at 1878 milliseconds and a corrected sinus node recovery time was also prolonged. Once again, this was a very long procedure on account for very long isthmus with a large pouch that required ablation with standard catheter positions as well as a reverse loop to terminate the tachycardia and the atrial flutter. The patient tolerated the procedure well without any acute complications. He was extubated at the end of the procedure. PLAN: 1. Reduce amiodarone to 200 mg p.o. daily and after a month cut down to 100 mg p.o. daily. 2. Continue metoprolol 50 mg twice daily and continue Xarelto 20 mg p.o. daily. SAE / RADHA: [id number] /
[2018-07-05 10:40] VITALS: RESP 16
--- NOTE | 2018-07-05 15:07 | P.PN ---
Subjective Progress Note Date: 07/05/18 This is a 72-year-old gentleman with atrial fibrillation with rapid ventricular response. Has a history of CAD with recent cardiac catheterization and stenting done in [place] where he received 2 stents to LAD, one stent to left circumflex and one stent to the RCA. Ejection fraction at that time was reported to be 35-39%. No clear evidence of HI at that time. Also history of hypertension and hyperlipidemia. He was discharged home in [place] with aspirin , Eliquis and Brilinta. He recently underwent CANDIDA and cardioversion at which time he had a long pause following the cardioversion. He was subsequently placed on an event monitor. He was seen in our office for a low-level stress test at which time he was found to be tachycardic and hypotensive. Was sent to the emergency department and found to be in atrial flutter with rapid ventricular response. He was placed on a Cardizem drip. Patient apparently has also been dealing with UTI and some hematuria. Patient's heart rate this morning continues to be in the 140 range, we have added amiodarone 200 mg one tablet by mouth 3 times a day to his medication regime along with the metoprolol 50 mg by mouth twice a day. Overall the patient states that he feels well, he's been up ambulating, no palpitations, no shortness of breath. Blood pressure 112/70, 96% on room air. Sodium 135, potassium 4.7, BUN 19, creatinine 1.0. 07/02/2018 Patient was seen and examined this morning, overall feels well. Heart rate primarily in the 130s to 140s today. He has been up ambulating without any difficulty. He is scheduled to undergo his ablation for atrial fibrillation tomorrow. Blood pressure 110/70. Sodium 135, potassium 4.7, BUN 19, creatinine 1.09. 07/05/2018 Patient seen and examined this morning, remaining in normal sinus rhythm. Underwent atrial flutter ablation yesterday. Hemodynamically stable. Right and left groins clean, no evidence of any hematoma. Objective - Vital Signs Vital signs: Vital Signs Temp 98.1 F 07/05/18 11:35 Pulse 71 07/05/18 11:35 Resp 16 07/05/18 11:35 BP 112/75 07/05/18 11:35 Pulse Ox 100 11/16/18 11:35 Intake & Output 07/04/18 07/05/18 07/05/18 18:59 06:59 18:59 Intake Total 740 530 480 Balance 740 530 480 Weight 91.6 kg 92.4 kg Intake: IV 700 50 Intake, IV Titration 40 Amount Lactated Ringers 1,000 ml 40 @ 20 mls/hr IV .Q24H HERLINDA Rx#:[id number] Oral 480 480 Other: Voiding Method Urinal # Voids 1 1 1 - Exam PHYSICAL EXAMINATION: GENERAL: 72-year-old gentleman in no acute distress at the time of my examination HEENT: Head is atraumatic, normocephalic. Pupils equal, round. Sclera anicteric. Conjunctiva are clear. Mucous membranes of the mouth are moist. Neck is supple. There is no elevated jugular venous pressure.] bruit is heard. HEART EXAMINATION: Heart S1 and S2 normal, systolic murmur heard. CHEST EXAMINATION: Lungs are clear to auscultation and precussion. No chest wall tenderness is noted on palpation or with deep breathing. ABDOMEN: Soft, nontender. Bowel sounds are heard. No organomegaly noted. EXTREMITIES: 2+ peripheral pulses with no evidence of peripheral edema and no calf tenderness noted. NEUROLOGIC patient is awake, alert and oriented ?-3. . - Labs CBC & Chem 7: 07/04/18 07:17 07/04/18 07:17 Assessment and Plan Plan: Assessment and Plan Assessment: #1 typical atrial flutter with rapid ventricular response, persistent #2 CAD with recent stenting of the left circumflex, LAD and RCA #3 hypertension #4 cardiomyopathy, exact etiology unclear, could be partly ischemic as well as tachycardia mediated to my ejection fraction around 35-40% Plan Patient is status post atrial flutter ablation, May be discharged home today from our perspective. Follow-up appointment with Dr. Reed in the office post discharge. DNP note has been reviewed, I agree with a documented findings and plan of care. Patient was seen and examined.
[2018-07-05 16:39] VITALS: BP 101/56; PULSE 76; TEMP 98.2
== END 2018-07-05 16:20 | disposition home or self-care (01) | DRG 274 ==
LOC: EC 12:46 → 3SCARD 14:43
PROVIDERS: ADMIT Internal Medicine; ATTEND Internal Medicine
PROC: 4A0234Z Measurement of Cardiac Electrical Activity, Percutaneous Approach (ICD-10-PCS; principal; 2018-07-04 16:30)
PROC: 02K83ZZ Map Conduction Mechanism, Percutaneous Approach (ICD-10-PCS; principal; 2018-07-04 16:30)
PROC: 02583ZZ Destruction of Conduction Mechanism, Percutaneous Approach (ICD-10-PCS; principal; 2018-07-04 16:30)
PROC: 4A023FZ Measurement of Cardiac Rhythm, Percutaneous Approach (ICD-10-PCS; principal; 2018-07-04 16:30)
DX: I48.91 Unspecified atrial fibrillation (principal); I50.22 Chronic systolic (congestive) heart failure; N39.0 Urinary tract infection, site not specified; E87.1 Hypo-osmolality and hyponatremia; E78.5 Hyperlipidemia, unspecified; E86.1 Hypovolemia; I11.0 Hypertensive heart disease with heart failure; I25.10 Atherosclerotic heart disease of native coronary artery without angina pectoris; I25.5 Ischemic cardiomyopathy; I44.1 Atrioventricular block, second degree; I48.3 Typical atrial flutter; J45.909 Unspecified asthma, uncomplicated; N40.0 Benign prostatic hyperplasia without lower urinary tract symptoms; B96.4 Proteus (mirabilis) (morganii) as the cause of diseases classified elsewhere; Z79.01 Long term (current) use of anticoagulants; Z79.02 Long term (current) use of antithrombotics/antiplatelets; Z79.899 Other long term (current) drug therapy; Z82.49 Family history of ischemic heart disease and other diseases of the circulatory system; Z83.3 Family history of diabetes mellitus; Z87.891 Personal history of nicotine dependence; Z95.5 Presence of coronary angioplasty implant and graft
CPT/HCPCS: 36415; 71046; 80048; 80053; 81001; 83735; 83880; 84443; 84484; 85025; 85027; 85610; 85730; 93005; 93613; 93656; 93662; 96365; 96366; 99291

== ENCOUNTER → 2018-07-09 | Outpatient (CLI) | payer MEDICARE, BC ==
[2018-07-09 19:29] LABS: Albumin 3.7 g/dL (3.80-4.90); Albumin/Globulin Ratio 1.85 (1.20-2.10); Anion Gap 9.1 mmol/L (4.00-12.00); Calcium 8.4 mg/dL (8.7-10.3); Carbon Dioxide 18.9 mmol/L (21.6-31.8); LDL Cholesterol,Calculated 46.4 mg/dL (0.0-131.0); Potassium 4.8 mmol/L (3.5-5.5); Total Bilirubin 0.6 mg/dL (0.2-1.2); Total Protein 5.7 g/dL (6.2-8.2); VLDL Calculation 11.6 mg/dL (5.00-40.00)
== END | disposition home or self-care (01) ==
LOC: LABWHC1 07:57
PROVIDERS: ATTEND Internal Medicine Interventional Cardiology
DX: E78.2 Mixed hyperlipidemia (principal)
CPT/HCPCS: 36415; 80053; 80061

== ENCOUNTER 2018-07-23 10:30 | Day surgery (SDC) | payer MEDICARE, BC ==
[2018-07-22 09:25] VITALS: BMI 27.4
[~2018-07-23 10:30] MED LIST: ceFAZolin 1,000 MG in SODIUM CHLORIDE 0.9% IRRIGATIO 250 ML IRRIGATION ONE; ceFAZolin IN SWFI 2 GM/20 ML SYRINGE IVP ONE
[2018-07-23] MEDS ORDERED: SODIUM CHLORIDE 0.9% 1,000 ML IV ONE (10:56)
[2018-07-23 11:06] LABS: Anisocytosis Slight; Basophils % (A) 1 %; Eosinophils # (A) 0.4 k/uL (0-0.7); Eosinophils % (A) 6 %; HCT 32.6 % (39.0-53.0); Hypochromasia Marked; Lymphocytes # (A) 1.2 k/uL (1.0-4.8); Lymphocytes % (A) 17 %; MCH 27.5 pg (25.0-35.0); MCHC 30.7 g/dL (31.0-37.0); Mean Platelet Volume 7.4; Monocytes # (A) 0.6 k/uL (0-1.0); Monocytes % (A) 9 %; Neutrophils # (A) 4.6 k/uL (1.3-7.7); Neutrophils % (A) 65 %; Platelet Count 466 k/uL (150-450); Poikilocytosis Slight; RBC 3.64 m/uL (4.30-5.90); RDW 17.1 % (11.5-15.5)
[2018-07-23 11:09] LABS: MCV 89.4 fL (80.0-100.0)
[2018-07-23] MEDS ORDERED: IOPAMIDOL-250 50ML BTL IV ONE (11:45)
[2018-07-23] MEDS ORDERED: fentaNYL (PF) 50 MCG/ML 2 ML AMP IV ONE (12:50)
[2018-07-23] MEDS ORDERED: MIDAZOLAM 2 MG/2 ML VIAL IV ONE (12:50)
[2018-07-23] MEDS ORDERED: LIDOCAINE 1% INJ 10MG/ML (20 ML MDV) SQ ONE ×2 (12:55→12:57)
[2018-07-23] MEDS ORDERED: ACETAMINOPHEN TAB 325 MG TAB PO PRN (13:43)
[2018-07-23] MEDS ORDERED: NITROGLYCERIN SL TABS 0.4 MG TAB SUBLINGUAL PRN (13:45)
--- NOTE | 2018-07-23 14:00 | P.PCN ---
Date of Procedure: 07/23/18 Preoperative Diagnosis: Sick sinus syndrome with pauses up to 6 seconds Postoperative Diagnosis: The same Procedure(s) Performed: Dual-chamber permanent pacemaker, axillary venography Description of Procedure: HISTORY: This is a 72-year-old gentleman with history of ischemic heart disease , cardiac arrhythmia was noted to have evidence of paroxysmal atrial fibrillation with conversion pauses up to 6 seconds. Because of sick sinus syndrome, patient is advised to have permanent pacemaker implantation. CONSENT:I have discussed the risks, benefits and alternative therapies for the above-mentioned procedure and for both sedation/analgesia as well as necessary blood product administration, if indicated, as they pertain to this patient. The patient has indicated understanding and acceptance of the risks and procedures discussed. PROCEDURE: Patient was brought to the lab in a fasting state. Patient was prepped and draped in the usual fashion. Patient was given IV sedation with fentanyl and Versed. The skin below the left clavicle was infiltrated with lidocaine. An incision was made parallel to deltopectoral groove was deepened until the pectoral fascia was exposed. A pocket was created by blunt dissection and cautery. Axillary venography was performed to delineate the course of the axillary vein. 2 sticks were performed into extrathoracic portion of the axillary vein and 2 sheaths were advanced over the guidewires and left in subclavian vein. Conscious Sedation: Versed 1 mg Fentanyl 50 g Duration 48minutes LEADS: ATRIAL: This is manufactured by [employer]. Model number is 4076/52. Serial number is [id number] VENTRICULAR: This is manufactured by [employer]. Model number is 4076/58 and the serial number is [id number] The ventricular lead is maneuvered l with help of a straight and curved stylets into the left ventricle apical region. Satisfactory position was obtained and threshold measurements were made. The atrial lead was then maneuvered into the right atrial appendage. And thresholds were obtained. THRESHOLDS: ATRIUM: The minimum patient threshold was 1 at pulse width of 0.5 V at impedance was 777. The P-wave is 2.3 VENTRICLE: The minimum patient threshold was 0.5 at pulse width of 0.5. Impedance of 797. R-wave: 8 mV The leads and pulse generator remained in the pocket after it was washed with antibiotics. Pocket was closed in the usual fashion. The fascia was closed with 2-0 Prolene ,the subcutaneous tissue was closed with 3-0 Prolene and the skin was closed with 4-0 Prolene. PROGRAMMING: MODE: AAIR with mode switch to DDDR RATE: 60 to 1:30 OUTPUT: Atrium : 3.5 V Ventricle: 3.5 V FINAL IMPRESSION: #1. Axillary venography #2. Dual-chamber permanent pacemaker implantation COMPLICATIONS:. None PLAN:. Continue prophylactic antibiotics. Monitored on the telemetry unit. Chest x-ray in the morning. Possible discharge within next 24 hours.
[2018-07-23] MEDS: HYDROcodone/APAP 5-325MG 1 EACH TAB PO PRN ×2 (15:26→23:22)
[2018-07-23] MEDS: ceFAZolin IN SWFI 2 GM/20 ML SYRINGE IVP SCH ×2 (18:38→23:22)
[2018-07-23] MEDS ORDERED: ATORVASTATIN 20 MG TAB PO SCH (21:00)
[2018-07-23] MEDS: SODIUM CHLORIDE 0.9% 1,000 ML IV SCH (21:19)
[2018-07-24] MEDS: SODIUM CHLORIDE 0.9% 1,000 ML IV SCH (02:43)
[2018-07-24] MEDS: HYDROcodone/APAP 5-325MG 1 EACH TAB PO PRN ×2 (03:30→08:39)
[2018-07-24] MEDS: ceFAZolin IN SWFI 2 GM/20 ML SYRINGE IVP SCH ×2 (05:43→11:05)
[2018-07-24 07:57] VITALS: RESP 18
--- NOTE | 2018-07-24 08:29 | P.DS ---
Providers Date of admission: 07/23/2018 Attending physician: Cierra Lowry Primary care physician: Stated None - Discharge Diagnosis(es) (1) Sick sinus syndrome Current Visit: Yes Status: Acute (2) CAD (coronary artery disease) Current Visit: Yes Status: Acute (3) Atrial fibrillation Current Visit: No Status: Acute Hospital Course: This patient with history of coronary artery disease with a history of previous stent placement and also sick sinus syndrome was admitted to the hospital for permanent pacemaker implantation. Patient had a dual-chamber permanent pacemaker implantation yesterday. Patient tolerated the procedure well. He remained stable overnight. His vital signs are stable. He did have some pain and has taken [place]. The site looks good without any hematoma or bleeding. A chest x-ray showed proper lead position. He denies any shortness of breath. His lungs are clear. Heart is regular. Patient is being discharged home after completion of antibiotics and evaluation of the device by the [employer] rep. He 'll continue home medications. He'll start taking his clopidogrel this evening and start taking Xarelto from tomorrow. He is advised to keep the dressing dry until seen in the office in one week. He is advised not to lift his arm above the shoulder level. He is also advised to avoid any heavy lifting, pushing, pulling or driving. He is instructed to call us if it develops any undue swelling, pain or fevers or chills. Follow-up with the Dr. Reed in one week in the office and also in the device clinic. Plan - Discharge Summary Discharge Rx Participant: No New Discharge Prescriptions: New HYDROcodone/APAP 5-325MG [[place] 5-325] 1 each PO Q4HR PRN tab PRN Reason: Pain Continue Tamsulosin [Flomax] 0.4 mg PO QAM Nitroglycerin Sl Tabs [Nitrostat] 0.4 mg SUBLINGUAL Q5M PRN PRN Reason: Angina Rosuvastatin [Crestor] 10 mg PO HS HYDROcodone/APAP 10-325MG [[place] 10-325] 1 tablet PO Q8HR PRN PRN Reason: Pain Acetaminophen Tab [Tylenol] 650 mg PO Q6HR PRN tab PRN Reason: Mild Pain Amiodarone [Cordarone] 200 mg PO DAILY #30 tab Clopidogrel [Plavix] 75 mg PO DAILY #30 tab Lisinopril [Zestril] 2.5 mg PO DAILY Metoprolol Tartrate [Lopressor] 25 mg PO DAILY Discontinued Rivaroxaban [Xarelto] 20 mg PO W/SUPPER #30 tab Discharge Medication List Tamsulosin [Flomax] 0.4 mg PO QAM 03/02/16 [History] Nitroglycerin Sl Tabs [Nitrostat] 0.4 mg SUBLINGUAL Q5M PRN 06/05/18 [History] Rosuvastatin [Crestor] 10 mg PO HS 06/05/18 [History] HYDROcodone/APAP 10-325MG [[place] 10-325] 1 tablet PO Q8HR PRN 06/28/18 [History] Acetaminophen Tab [Tylenol] 650 mg PO Q6HR PRN tab 07/05/18 [Rx] Amiodarone [Cordarone] 200 mg PO DAILY #30 tab 07/05/18 [Rx] Clopidogrel [Plavix] 75 mg PO DAILY #30 tab 07/05/18 [Rx] Lisinopril [Zestril] 2.5 mg PO DAILY 07/22/18 [History] Metoprolol Tartrate [Lopressor] 25 mg PO DAILY 07/22/18 [History] HYDROcodone/APAP 5-325MG [[place] 5-325] 1 each PO Q4HR PRN tab 07/24/18 [Rx] Follow up Appointment(s)/Referral(s): Chris Reed MD [STAFF PHYSICIAN] - 1 Week Patient Instructions/Handouts: Pacemaker (DC) Discharge Disposition: HOME SELF-CARE
[2018-07-24] MEDS: TAMSULOSIN 0.4 MG CAP.ER.24H PO SCH (08:41)
[2018-07-24] MEDS ORDERED: AMIODARONE 200 MG TAB PO SCH (09:00)
[2018-07-24] MEDS ORDERED: LISINOPRIL 5 MG TAB PO SCH (09:00)
[2018-07-24] MEDS ORDERED: METOPROLOL TARTRATE 25 MG TAB PO SCH (09:00)
[2018-07-24] MEDS ORDERED: METOPROLOL TARTRATE 50 MG TAB PO SCH (09:00)
--- NOTE | 2018-07-24 09:16 | XR ---
EXAMINATION TYPE: XR chest 2V DATE OF EXAM: 07/24/2018 COMPARISON: Prior chest x-ray 06/28/2018 HISTORY: Lead placement check TECHNIQUE: Frontal and lateral views of the chest are obtained. FINDINGS: Been interval placement of a generator in left pectoral region, there are leads in the rig ht atrium and ventricle. No evident pneumothorax or pleural effusion. Cardiomediastinal silhouette, p ulmonary vascularity and lisandro are stable. Interstitium is increased. The aorta is tortuous. IMPRESSION: No evident complication status post pacemaker placement.
[2018-07-24 11:31] VITALS: BP 148/84; PULSE 59; TEMP 97.5
== END 2018-07-24 12:55 | disposition home or self-care (01) ==
LOC: CATHEP 10:30 → 1SOBS 13:48 → CATHEP 07-24 12:55
PROVIDERS: ATTEND Internal Medicine Cardiovascular Disease
DX: I49.5 Sick sinus syndrome (principal); I48.0 Paroxysmal atrial fibrillation; I25.5 Ischemic cardiomyopathy; I48.4 Atypical atrial flutter; I25.10 Atherosclerotic heart disease of native coronary artery without angina pectoris; Z95.5 Presence of coronary angioplasty implant and graft; I10 Essential (primary) hypertension; E78.2 Mixed hyperlipidemia; G47.33 Obstructive sleep apnea (adult) (pediatric); Z79.01 Long term (current) use of anticoagulants; Z79.02 Long term (current) use of antithrombotics/antiplatelets; Z79.899 Other long term (current) drug therapy
CPT/HCPCS: 33208; 85025; 71046; C1892; C1898; C1769; C1785; J2250; J0690 ×3; J2001; J3010; Q9966

== ENCOUNTER → 2018-09-11 | Outpatient (CLI) | payer MEDICARE, BC ==
[2018-09-11 18:16] LABS: Albumin 4.4 g/dL (3.80-4.90); Albumin/Globulin Ratio 1.91 (1.20-2.10); Anion Gap 7.2 mmol/L (4.00-12.00); Calcium 9.2 mg/dL (8.7-10.3); Carbon Dioxide 24.8 mmol/L (21.6-31.8); Globulin 2.3 g/dL (1.6-3.3); LDL Cholesterol,Calculated 66.8 mg/dL (0.0-131.0); Potassium 5.1 mmol/L (3.5-5.5); Total Bilirubin 0.4 mg/dL (0.2-1.2); Total Protein 6.7 g/dL (6.2-8.2); VLDL Calculation 15.2 mg/dL (5.00-40.00)
== END | disposition home or self-care (01) ==
LOC: LABWHC1 12:16
PROVIDERS: ATTEND Nurse Practitioner Adult Health
DX: I25.5 Ischemic cardiomyopathy (principal); E03.2 Hypothyroidism due to medicaments and other exogenous substances; I48.1 Persistent atrial fibrillation; E78.2 Mixed hyperlipidemia
CPT/HCPCS: 36415; 80053; 80061; 84439; 84443

== ENCOUNTER → 2018-09-24 | Outpatient (CLI) | payer MEDICARE, BC ==
--- NOTE | 2018-09-24 18:16 | CONS ---
CONSULTATION REASON FOR CONSULTATION: Sleep apnea. HISTORY OF PRESENT ILLNESS: This is a 72-year-old male patient who was having issues with paroxysmal atrial fibrillation. The patient also was found to have nocturnal bradycardia for which the patient had a permanent pacemaker inserted. He is known to have coronary disease and has undergone previous coronary artery angiography and stenting on multiple occasions. For all these reasons, the patient is coming in for sleep apnea evaluation. The patient has a soft snore. He goes to bed around midnight and wakes up at noon time the next day and he is averaging more than 8 hours of sleep. He wakes up relatively refreshed after sleeping all these hours. No grinding of the teeth. No restlessness in lower extremities. No heartburn. No nocturnal chest pain or shortness of breath. PAST MEDICAL HISTORY: 1. Coronary artery disease with previous coronary angioplasty and stenting. 2. Paroxysmal atrial fibrillation. 3. History of permanent pacemaker insertion. 4. Benign prostatic hypertrophy. 5. Hyperlipidemia. PAST SURGICAL HISTORY: Includes cardiac catheterization and stents and pacemaker insertion. DRUG ALLERGIES: Not known. OUTPATIENT MEDICATIONS INCLUDE: 1. Amiodarone 200 mg p.o. daily. 2. Metoprolol 25 mg twice a day. 3. Lisinopril 5 mg half tablet a day. 4. Flomax 0.4 mg p.o. daily. 5. statin 10 mg p.o. daily. 6. Xarelto 20 mg p.o. daily. 7. Plavix 75 mg p.o. daily. 8. [place] on a p.r.n. basis. SOCIAL HISTORY: The patient is a nonsmoker. No history of alcohol. No history of IV drugs. FAMILY HISTORY: Noncontributory. REVIEW OF SYSTEMS: 12-point review of system was done and positive points were mentioned above in history of present illness. SOCIAL HISTORY: The patient is an ex smoker. No history of alcohol. No history of IV drugs. PHYSICAL EXAMINATION: BP is 147/83, pulse 80, respirations 16, temperature 98.3 saturation 99% on room air. Weight is 216. Height is 5 feet 11 inches, BMI 29.7, general appearance: Calm and comfortable. Neck size is 17 inches. Head is atraumatic, normocephalic. NECK: Supple. No JVD. No goiter. No neck masses. LUNGS: Clear to auscultation. HEART: Sounds are regular rate and rhythm. Normal S1, S2. No S3. No S4, no murmurs. ABDOMEN: Soft, nontender. No organomegaly. EXTREMITIES: No edema. No cyanosis or clubbing. IMPRESSION: 1. Snoring rule out underlying obstructive sleep apnea. 2. Paroxysmal atrial fibrillation. 3. History of pacemaker insertion. 4. Coronary artery disease with previous cardiac catheterization and stenting. 5. Benign prostatic hypertrophy. 6. Hyperlipidemia. PLAN: We will set up this patient for polysomnogram. This study will be new needed to rule out any sleep breathing disorder. We will also look for any nocturnal arrhythmias that may be complicating his sleep. We will make further recommendations based on the results of the sleep study. MMODL / IJN: [id number] /
== END ==
LOC: SLEEP 14:17
PROVIDERS: ATTEND Internal Medicine Critical Care Medicine
DX: R06.83 Snoring (principal); I48.0 Paroxysmal atrial fibrillation; I25.10 Atherosclerotic heart disease of native coronary artery without angina pectoris; N40.0 Benign prostatic hyperplasia without lower urinary tract symptoms; E78.5 Hyperlipidemia, unspecified; Z95.0 Presence of cardiac pacemaker; Z79.899 Other long term (current) drug therapy; Z79.891 Long term (current) use of opiate analgesic; Z79.01 Long term (current) use of anticoagulants; Z79.02 Long term (current) use of antithrombotics/antiplatelets
CPT/HCPCS: 99211

== ENCOUNTER → 2018-11-12 | Outpatient (CLI) | payer MEDICARE, BC ==
--- NOTE | 2018-11-12 21:44 | PN ---
PROGRESS NOTE The patient is a 73-year-old male, who was diagnosed having obstructive sleep apnea. The patient has been diagnosed having severe sleep apnea, a combination of obstructive and central. Apnea-hypopnea index was 44. Nevertheless he demonstrated adequate number of obstructive and central events. He is known to have coronary artery disease and previous history of atrial fibrillation. Current rhythm is sinus. He has also periodic limb movements that are excessive yet they are not causing any significant nocturnal arousals. On today's evaluation, the patient is discussing his need for CPAP therapy. Note that he underwent a successful CPAP titration. Utilized pressure maximized at 13, however I chose a CPAP pressure of 11 cm of water for this patient to be starting the treatment on. The rational behind the treatment was explained to the patient. His titration was very much successful knowing that he had complete elimination of obstructive and central apneas during the titration. The patient told me that he will be going to [place] for a month and I opted to initiate CPAP therapy after he in mid December of 2018. He has no chest pain. He has no palpitation. He has some ongoing chronic fatigue and sleepiness during the day. His cardiac condition is stable for now and there has been no other significant events otherwise. REVIEW OF SYSTEMS: 14-point review of system was done and positive findings are mentioned in history of present illness. For now, he is still snoring. Wakes up with dry mouth. No grinding of the teeth. No restlessness in his lower extremities. No anxiety. No depression. No irritability. No difficulty with memory or concentration. He is still waking up tired for now. No history of any motor vehicle accident because of feeling drowsy or sleepy. No recent weight gain or weight loss. No chest pain. No shortness of breath. No cough or sputum production. No nausea, vomiting, diarrhea or abdominal pain. No dysuria. PHYSICAL EXAMINATION: His current vitals: BP is 127/75, pulse is 88, respirations 16, saturation 97% on room air. Weight is 269. Height is 5 feet 11 inches. General appearance: Calm and comfortable. Head is atraumatic, normocephalic. NECK: Supple. No JVD. No goiter or neck masses. Mallampati class III. LUNGS: Clear to auscultation. HEART: Sounds are regular rate and rhythm. Normal S1, S2. No S3. No murmurs. ABDOMEN: Soft, nontender. No organomegaly. EXTREMITIES: No edema. No cyanosis or clubbing. IMPRESSION: 1. Sleep apnea. Severe AHI of 44. A combination of obstructive and central. 2. Poor sleep efficiency, improved with CPAP therapy and was up to 75% while on CPAP. 3. Chronic hypersomnia and fatigue. 4. Paroxysmal atrial fibrillation currently in sinus. 5. Coronary artery disease. 6. Periodic limb movement excessive yet not causing sleep fragmentation. PLAN: 1. Order CPAP unit for this patient. May order will be going out in mid December after the patient arrives back from [place], he will be started on a CPAP pressure of 11 cm of water with a C-flex of 3 and he will be also given a Simplus full face mask. 2. The rationale behind the CPAP therapy was explained. The patient was agreeable to undertake the treatment. He will come and see me back in 30 to 90 days to assess clinical response and compliance and further adjustments will be done accordingly. MMYOSVANYL / JADONN: [id number] /
== END | disposition home or self-care (01) ==
LOC: SLEEP 15:48
PROVIDERS: ATTEND Internal Medicine Critical Care Medicine
DX: G47.33 Obstructive sleep apnea (adult) (pediatric) (principal); G47.31 Primary central sleep apnea; G47.61 Periodic limb movement disorder; I25.10 Atherosclerotic heart disease of native coronary artery without angina pectoris; R53.82 Chronic fatigue, unspecified; I48.0 Paroxysmal atrial fibrillation; Z99.89 Dependence on other enabling machines and devices

== ENCOUNTER → 2019-02-04 | Outpatient (CLI) | payer MEDICARE, BC ==
--- NOTE | 2019-02-04 12:49 | PN ---
PROGRESS NOTE A 73-year-old male patient diagnosed having severe obstructive sleep apnea with an AHI of 44. The patient had a number of obstructive and central events. The patient known to have coronary artery disease and previous history of atrial fibrillation. His cardiac rhythm is still in sinus. The patient was titrated to a CPAP pressure of 11 cm of water. The patient was in [place] and after arriving from [place] approximately 4 weeks ago, the patient was able to obtain his CPAP unit. He is using his CPAP without any major difficulties for now. I would like him to use it more for longer period of time. It seems that he is averaging around 4 hours of CPAP use per night and CPAP use for more than 4 hours is approximately 50%. His AHI is down to 2.7. Leak is 1 L/minute and the patient is using a Simplus full face mask. He is benefitting from the treatment. He wants to continue treatment. I would like to see better compliance data on this patient to meet insurance standards. He has no complaints. No chest pain. No palpitation. No excessive tiredness and sleepiness and he is benefitting from the treatment. REVIEW OF SYSTEMS: Fourteen-point review of system was done. Positive findings are mentioned above in the history of present illness. His current weight is 219 which is pretty much equivalent to his previous body weight. No major hypersomnia or sleepiness. He is awake and alert during the day. He does not fall asleep while driving his car. PHYSICAL EXAMINATION: VITAL SIGNS: BP is 108/71, pulse 60, respirations 16, weight is 219, temperature 98.1, saturation 95% on room air. GENERAL APPEARANCE: Calm, comfortable. HEAD: Atraumatic, normocephalic. NECK: Supple. No JVD. No goiter or neck mass. LUNGS: Clear to auscultation. HEART: Sounds regular rate and rhythm. Normal S1, S2. No S3. No murmurs. ABDOMEN: Soft, nontender. No organomegaly. EXTREMITIES: No edema. No cyanosis or clubbing. NEUROLOGIC: Alert and oriented x3. No focal neurological deficits. PSYCHIATRIC: Negative for anxiety or depression. IMPRESSION: 1. Obstructive sleep apnea, AHI 44, currently on CPAP at a pressure of 11. 2. Hypersomnia, improving. 3. Poor sleep efficiency, improving. 4. Paroxysmal atrial fibrillation, currently in sinus. 5. Coronary artery disease. PLAN: 1. We would like to extend the use of CPAP to more than 5 hours per night. 2. Keep the same pressure setting. 3. Keep the same mask interface. 4. Implement good sleep hygiene measures, extend sleep hours, utilized CPAP more than 5 hours per night. 5. See me back in a year's time or followup earlier if needed. SAE / JADONN: [id number] /
== END | disposition home or self-care (01) ==
LOC: SLEEP 11:12
PROVIDERS: ATTEND Internal Medicine Critical Care Medicine
DX: G47.33 Obstructive sleep apnea (adult) (pediatric) (principal); I48.0 Paroxysmal atrial fibrillation; I25.10 Atherosclerotic heart disease of native coronary artery without angina pectoris; Z99.89 Dependence on other enabling machines and devices

== ENCOUNTER → 2019-03-11 | Outpatient (CLI) | payer MEDICARE, BC ==
--- NOTE | 2019-03-11 19:35 | PN ---
PROGRESS NOTE 73-year-old male patient with severe JACKELIN, AHI of 44. He was seen in the office back in January. He was not meeting insurance standards as the patient's CPAP use for more than 4 hours was at 50%. He was asked to come in and on today's evaluation, he is doing much better. He is more committed to the treatment. He has been averaging around 5.3 hours of CPAP use per night and his CPAP use for more than 4 hours is 29/30. AHI is down to 1.8 and the patient's leak is only 5 L/minutes. He has no specific complaints. He is using his CPAP every night. No tiredness and no sleepiness during the day. His current rhythm is sinus. No angina. No palpitations. No significant shortness of breath. REVIEW OF SYSTEMS: Fourteen-point review of system was done. Positive findings are mentioned in history of present illness. His weight is down by around 7 pounds since his last evaluation. No angina. No palpitations. No tiredness or sleepiness. [place] score done is down to 0. No altered mentation. No headaches in the morning. PHYSICAL EXAMINATION: BP is 119/74, pulse 69, respirations 12. Temperature 97.7. Saturation 99% on room air. Height is 5 feet 11 inches, weight is 212 and [place] score is down to a 0. BMI is 29. GENERAL APPEARANCE: Calm and comfortable. Head is atraumatic, normocephalic. NECK: Supple. There is no JVD. No goiter. No neck mass. Lungs diminished. Otherwise clear. HEART: Sounds regular rate and rhythm. Normal S1, S2. No S3, S4. No murmurs. ABDOMEN: Soft, nontender. No organomegaly. EXTREMITIES: No edema. No cyanosis or clubbing. NEUROLOGIC: Alert and oriented x3. No focal neurological deficits. PSYCHIATRIC: Negative for anxiety or depression. SKIN: Negative for any wounds or ulceration. IMPRESSION: 1. Symptomatic obstructive sleep apnea, AHI of 44. Currently on CPAP pressure of 11 with excellent clinical response and compliance. 2. Hypersomnia, recovered. [place] score is down to 0. 3. Paroxysmal atrial fibrillation, currently rhythm is sinus. 4. History of coronary artery disease. PLAN: 1. The patient meets the insurance standards regarding compliancy. 2. Continue CPAP therapy at same level of pressure. 3. Encourage further weight loss as the patient has already lost 7 pounds since his last evaluation. 4. Follow up with me in a year's time, earlier if needed. MMODL / IJN: [id number] /
== END | disposition home or self-care (01) ==
LOC: SLEEP 15:59
PROVIDERS: ATTEND Internal Medicine Critical Care Medicine
DX: G47.33 Obstructive sleep apnea (adult) (pediatric) (principal); I48.0 Paroxysmal atrial fibrillation; Z86.79 Personal history of other diseases of the circulatory system; Z99.89 Dependence on other enabling machines and devices

== ENCOUNTER → 2019-09-30 | Outpatient (CLI) | payer MEDICARE, BC ==
[2019-09-30 18:57] LABS: African American GFR (CKD) 87.4 (60.0-200.0); Albumin 4.2 g/dL (3.80-4.90); Albumin/Globulin Ratio 2.1 (1.60-3.17); Anion Gap 8.6 mmol/L (4.00-12.00); Calcium 8.8 mg/dL (8.7-10.3); Carbon Dioxide 21.4 mmol/L (21.6-31.8); Chol/HDL Ratio 2.43; LDL Cholesterol,Calculated 45.8 mg/dL (0.0-131.0); Non-African American GFR(CKD) 75.4 (60.0-200.0); Potassium 4.2 mmol/L (3.5-5.5); Total Bilirubin 0.5 mg/dL (0.2-1.2); Total Protein 6.2 g/dL (6.2-8.2); VLDL Calculation 11.2 mg/dL (5.00-40.00)
== END | disposition home or self-care (01) ==
LOC: LABWHC1 13:23
PROVIDERS: ATTEND Nurse Practitioner Adult Health
DX: E78.2 Mixed hyperlipidemia (principal); I25.5 Ischemic cardiomyopathy
CPT/HCPCS: 36415; 80053; 80061; 84443

== ENCOUNTER 2019-12-18 23:21 | Emergency (ER) | payer MEDICARE, BC ==
[2019-12-18] MEDS ORDERED: SODIUM BICARB 8.4% 50 ML SYR (1 MEQ/ML) ONE (23:30)
[2019-12-18] MEDS ORDERED: CALCIUM CHLORIDE 100 MG/ML 10 ML SYRINGE ONE (23:30)
[2019-12-18] MEDS ORDERED: EPINEPHrine 10 ML SYRINGE (0.1 MG/ML) ONE (23:30)
[2019-12-19 01:05] VITALS: BP 67/40; PULSE 71; RESP 45; TEMP 94.7
--- NOTE | 2019-12-19 03:07 | ED ---
General Adult HPI <ElderGaurav chopra - Last Filed: 12/19/19 04:16> - General Source: patient, family Mode of arrival: ambulatory Limitations: no limitations <Doris Mathur - Last Filed: 12/19/19 04:19> - General Chief complaint: Cardiac Arrest/CPR Stated complaint: SOB Time Seen by Provider: 12/18/19 23:29 - History of Present Illness Initial comments: 74-year-old male patient is brought in for evaluation of shortness of breath. Prior to my evaluation patient became unresponsive requiring CPR. History from the is that patient was feeling short of breath just prior to arrival. states that symptoms started while watching television. States he went to the bathroom and when he came back he was very pale and had worsening symptoms so they brought him in. states that patient has a pacemaker, she is unsure about a defibrillator. States that two years ago he collapsed while in [place]. States that at that time he had "v fib". States he was seen by his physician a few days ago and "everything was fine". (Doris Mathur) - Related Data Home Medications Medication Instructions Recorded Confirmed Tamsulosin [Flomax] 0.4 mg PO HS 03/02/16 12/18/19 Nitroglycerin Sl Tabs [Nitrostat] 0.4 mg SUBLINGUAL Q5M PRN 06/05/18 07/22/18 Rosuvastatin [Crestor] 10 mg PO HS 06/05/18 12/18/19 HYDROcodone/APAP 10-325MG [[place] 1 tablet PO QID PRN 06/28/18 12/18/19 10-325] Albuterol Inhaler [Ventolin Hfa 2 puff INHALATION RT-Q4H 12/18/19 12/18/19 Inhaler] Albuterol Nebulized [Ventolin 2.5 mg INHALATION RT-TID 12/18/19 12/18/19 Nebulized] Azithromycin [Zithromax Z-pack] See Taper PO DAILY 12/18/19 12/18/19 Lisinopril [Zestril] 2.5 mg PO DAILY 12/18/19 12/18/19 Metoprolol Tartrate [Lopressor] 25 mg PO BID 12/18/19 12/18/19 Rivaroxaban [Xarelto] 20 mg PO HS 12/18/19 12/18/19 Umeclidinium Brm/Vilanterol Tr 1 puff INHALATION RT-DAILY 12/18/19 12/18/19 [Anoro Ellipta 62.5-25 Mcg INH] methylPREDNISolone [Medrol Dose See Taper PO DIRECTED 12/18/19 12/18/19 Pack] Previous Rx's Medication Instructions Recorded Amiodarone [Cordarone] 200 mg PO DAILY #30 tab 07/05/18 Clopidogrel [Plavix] 75 mg PO DAILY #30 tab 07/05/18 Allergies Allergy/AdvReac Type Severity Reaction Status Date / Time No Known Allergies Allergy Verified 12/19/19 01:09 Review of Systems ROS Other: All systems not noted in ROS Statement are negative. <Gaurav Glaser - Last Filed: 12/19/19 04:16> ROS Other: All systems not noted in ROS Statement are negative. <Doris Mathur - Last Filed: 12/19/19 04:19> ROS Statement: Those systems with pertinent positive or pertinent negative responses have been documented in the HPI. Past Medical History Past Medical History: Atrial Fibrillation, Hyperlipidemia, Hypertension, Osteoarthritis (OA), Pneumonia, Prostate Disorder Additional Past Medical History / Comment(s): hx lt wrist fx -casted only, chronic back pain"spurs" History of Any Multi-Drug Resistant Organisms: None Reported Past Surgical History: Heart Catheterization With Stent Additional Past Surgical History / Comment(s): 05/13/18, 4 stents placed in [place], ep study jennie cardioversion.colonoscopy Past Anesthesia/Blood Transfusion Reactions: No Reported Reaction Date of Last Stent Placement:: 05/13/18 Past Psychological History: No Psychological Hx Reported Smoking Status: Unknown if ever smoked - Past Family History Mother Family Medical History: Cancer, Chest Pain / Angina, Hypertension, Thyroid Disorder Additional Family Medical History / Comment(s): COLON Father Family Medical History: Diabetes Mellitus, Hypertension Additional Family Medical History / Comment(s): ,pacemaker,brain anuerysm <Doris Mathur - Last Filed: 12/19/19 04:19> General Exam Limitations: no limitations General appearance: other (Upon my initial evaluation patient is pale, unresponsive, no pulses present, CPR was initiated. ) Eye exam: Present: other (pupils fixed, dilated) Respiratory exam: Present: other (apneic) Cardiovascular Exam: Present: other (No heart sounds, no pulse) Skin exam: Present: diaphoretic, pallor <Doris Mathur - Last Filed: 12/19/19 04:19> Course <Doris Mathur - Last Filed: 12/19/19 04:19> Vital Signs 12/18/19 23:25 Temperature 94.7 F L Pulse Rate 71 Respiratory 45 H Rate Blood Pressure 67/40 O2 Sat by Pulse 92 L Oximetry - Reevaluation(s) Reevaluation #1: Upon initial evaluation patient is unresponsive. No femoral or carotid pulse present. Patient vtach on the monitor. CPR started immediately. Paddle patches placed on patient. Monitor showed persistent vtach without a pulse so we did deliver one shock. CPR again started immediately. At this time Dr. Glaser my attending physician arrived. IV access was obtained and ACLS was continued. Patient was intubated by the PUBLIC ADMINISTRATION PROFESSOR. (Doris Mathur) Medical Decision Making <Gaurav Glaser - Last Filed: 12/19/19 04:16> - Medical Decision Making I saw this patient in conjunction with the nurse practitioner. I performed independent history and physical exam. Agree with case management. Patient became unresponsive shortly after triage and I was called to the bedside from where I was performing an intubation on another coating patient. ACLS protocol is continued. There was no response to resuscitative efforts and patient is pronounced at 2350. Attempted to reach patient's primary physician Dr. Rai, without success. Case discussed with biomedical instrument technician and body released. (Gaurav Glaser) Disposition <Gaurav Glaser - Last Filed: 12/19/19 04:16> Is patient prescribed a controlled substance at d/c from ED?: No Preliminary Cause of : Cardiac arrest <Doris Mathur - Last Filed: 12/19/19 04:19> Clinical Impression: Cardiac arrest Disposition: Referrals: Alecia Rai MD [Primary Care Provider] - 1-2 days
[2019-12-19 08:07] LABS: Glucose,Whole Blood 229 mg/dL (75-99)
== END 2019-12-19 05:49 | disposition expired ==
LOC: SUPCPDRO 23:21 → EC 23:21
DX: I46.9 Cardiac arrest, cause unspecified (principal); Z95.0 Presence of cardiac pacemaker; I48.91 Unspecified atrial fibrillation; E78.5 Hyperlipidemia, unspecified; I10 Essential (primary) hypertension; Z95.5 Presence of coronary angioplasty implant and graft; Z79.01 Long term (current) use of anticoagulants; Z79.899 Other long term (current) drug therapy
CPT/HCPCS: 31500; 36415; 92950; 99285